=== PATIENT | male | born 1940 | race Caucasian/White ===

== ENCOUNTER 2022-07-02 17:21 | Emergency (ER) | payer MEDICARE, SELFPAY ==
[2022-07-02 17:39] VITALS: BP 146/73; PULSE 72; RESP 22; TEMP 37.2; O2SAT 95; BMI 29.6
--- NOTE | 2022-07-02 18:16 | CRLHL7_ITS ---
For Patients: As a result of the Cures Act, medical imaging exams and procedure reports are released immediately into your electronic medical record. You may view this report before your referring provider. If you have questions, please contact your health care provider. INDICATION: Shortness of breath. TECHNIQUE: Chest 2 view. COMPARISON: 01/06/2022. FINDINGS: Cardiovascular and mediastinum: Heart size and vasculature are normal in caliber and appearance. Lungs and pleural spaces: Lungs are clear. No sign of infiltrate or mass. No sign of pleural effusion. No pneumothorax. Bones and soft tissues: Thoracic spine degenerative changes. IMPRESSION: No acute cardiopulmonary abnormality. Dictated by Kristopher Sargent MD @ 07/02/2022 7:25:14 PM (Electronically Signed)
--- NOTE | 2022-07-02 18:19 | ED_ITS ---
HPI - SOB/Dyspnea General Date Seen: 07/02/22 Chief Complaint: Shortness of Breath/Dyspnea Stated Complaint: LOW OXYGEN,WHEEZING,TROUBLE BREATHING Time Seen by Provider: 07/02/22 17:34 Source: patient and family Mode of arrival: ambulatory Limitations: no limitations History of Present Illness HPI Narrative: patient is a very nice 82-year-old gentleman who presents here with shortness of breath for the last 2-3 days. He has a by significant other, he has tried nebulize treatments with DuoNeb a couple times a day. These have helped him, he has a slight cough associated with this. Fully COVID vaccinated x4. no specific purulent production of sputum, denies fever, chills, is wheezy, no leg swelling, MD elicited complaint: shortness of breath Pertinent past history: COPD Timing: constant Severity: moderate Exacerbating factors: nothing Associated symptoms: denies other symptoms Treatment prior to arrival: none Related Data Previous Rx's Medication Instructions Recorded diphenoxylate-atropine 2.5 1 tab PO TID #90 tabs 05/21/22 mg-0.025 mg tablet (Lomotil) Allergies Allergy/AdvReac Type Severity Reaction Status Date / Time No Known Allergies Allergy Unknown Verified 05/08/22 10:56 Review of Systems Status of ROS: Reports: 10 or more systems reviewed and unremarkable except as noted in History and below [facility] Medical History Chronic diarrhea History of malignant neoplasm of colon Surgical History History of appendectomy (11/28/10) History of colonoscopy History of throat surgery (11/28/10) History of total right knee replacement Family History Father Alcoholism Social History Narrative: Non-smoker . Pt's , Latisha, in summer 2017 secondary to COPD Smoking Status: Former smoker What tobacco products do you use: cigarettes Smoking quit date/years: >15 years ago Do you use any of these nicotine containing products: None Second hand tobacco smoke exposure: No How often do you have a drink containing alcohol: never How often do you have six or more drinks on one occasion: Never AUDIT-C Alcohol total score: 0 Non-prescribed substance use: denies use service: No Exam Narrative: Exam Narrative: Patient is peaking normally, problem with slurring words, oriented x3. Head eyes ears nose and throat exam show equal pupils, no scleral icterus, extraocular muscles are normal, no facial droop, speech is normal, trachea normal and midline. Thyroid normal midline palpable not enlarged. Chest shows symmetrical rise bilaterally, normal auscultation with scattered wheezes, no increased work of breathing, no overt bruising or lesions seen, no tenderness is noted on auscultation. Heart sounds normal with no S3-S4 no murmurs clicks or gallops. Abdomen shows no obvious masses or hepatosplenomegaly, no organomegaly, bowel sounds are normal in all quadrants. No tenderness is noted also in all quadrants. Upper and lower extremities show normal power, normal range of motion, pulses are normal, sensations normal, fine motor movements are normal, pelvis is stable to rocking. Cervical spine shows normal range of motion, and palpably not tender. Thoracic spine shows normal range of motion, and palpably not tender, lumbar spine shows no tenderness to palpation percussion and is otherwise normal range of motion. Skin shows no rashes, petechiae or eccymosis. Const: Vital Signs, click to edit/add: Vital Signs - 24 hr 07/02/22 17:39 Temperature 98.9 F Pulse Rate [Left P ulse Oximeter] 72 Respiratory Rate 22 Blood Pressure [Le ft Upper Arm] 146/73 H Pulse Oximetry 95 Oxygen Delivery Me thod Room Air Documenting provider has reviewed patient's vital signs: yes Common normals: no apparent distress Course Vital Signs Vital signs: Initial Vital Signs Temperature 98.9 F 07/02/22 17:39 Temperature Source Temporal Artery Scan 07/02/22 17:39 Pulse Rate 72 07/02/22 17:39 Pulse Rhythm 07/02/22 17:39 Pulse Strength 3+ Normal 07/02/22 17:39 Respiratory Rate 22 07/02/22 17:39 Blood Pressure 146/73 H 07/02/22 17:39 Blood Pressure Mean 97 07/02/22 17:39 Blood Pressure Position Sitting 07/02/22 17:39 Pulse Oximetry 95 07/02/22 17:39 Oxygen Delivery Method 07/02/22 17:39 Vital Signs Temperature 98.9 F 07/02/22 17:39 Pulse Rate 72 07/02/22 17:39 Respiratory Rate 22 07/02/22 17:39 Blood Pressure 146/73 H 07/02/22 17:39 Pulse Oximetry 95 07/02/22 17:39 Oxygen Delivery Method 07/02/22 17:39 Temperature 98.9 F 07/02/22 17:39 Pulse Rate 72 07/02/22 17:39 Respiratory Rate 22 07/02/22 17:39 Blood Pressure 146/73 H 07/02/22 17:39 Pulse Oximetry 95 07/02/22 17:39 Oxygen Delivery Method 07/02/22 17:39 MDM - SOB/Dyspnea MDM Narrative Medical decision making narrative: Life-threatening differential diagnosis includes occluded COPD exacerbation, pulmonary edema, acute coronary syndromes, pulmonary embolism, pneumonia, and pneumothorax. Other differential diagnosis considerations include asthma, bronchitis as well as other etiologies I discussed with the patient and . I feel this is an exacerbation of COPD, age adjusted D-dimer troponin normal EKG looks normal and chest x-ray shows no acute findings. We will give him a DuoNeb put him on some prednisone, and some antibiotic. Differential Diagnosis Differential diagnosis: Likely acute exacerbation of chronic obstructive airways disease, community acquired pneumonia, asthma with exacerbation and pulmonary embolism Medical Records Attestation: I reviewed the patient's medical records. Lab Data Attestation: I reviewed the patient's lab results. Labs: Lab Results 07/02/22 07/02/22 07/02/22 Range/Units 18:34 18:34 18:34 WBC 9.97 (4.50-11.00) K/uL RBC 4.69 (4.30-5.90) m/uL Hgb 13.7 (13.5-17.5) gm/dL Hct 42.2 (37.0-53.0) % MCV 90 (80-100) fL MCH 29 (26-34) pg MCHC 33 (32-36) gm/dL RDW Coeff of Angelica 13.7 (11.5-15.5) % Plt Count 326 (140-440) K/uL Neut % (Auto) 63.9 (42.0-72.0) % Lymph % (Auto) 15.6 L (20-44) % [place] % (Auto) 10.4 (0.0-11.0) % Eos % (Auto) 9.2 H (0.0-7.0) % Baso % (Auto) 0.8 (0.0-3.0) % Neut # (Auto) 6.36 (1.7-7.0) K/uL Lymph # (Auto) 1.60 (0.90-2.90) K/uL [place] # (Auto) 1.00 H (0.00-0.90) K/UL Eos # (Auto) 0.90 H (0.00-0.50) K/uL Baso # (Auto) 0.08 (0.00-0.30) K/uL Abs Immat Gran (auto) 0.01 (0.00-0.30) K/uL INR 0.93 (0.91-1.10) APTT 33 (23-33) Seconds D-Dimer Quant (PE/DVT) 0.58 H (0.00-0.50) ug/ml Sodium 138 (135-149) mmol/L Potassium 4.5 (3.6-5.1) mmol/L Chloride 105 (96-114) mmol/L Carbon Dioxide 25 (20-32) mmol/L BUN 21 (7-30) mg/dL Creatinine 1.3 (0.5-1.5) mg/dL Estimated Creat Clear 43.12 Estimated GFR 55 ml/min Glucose 103 (60-115) mg/dL Calcium 9.3 (8.4-10.6) mg/dL NT-Pro-B Natriuret Pep 61 (0-450) PG/mL SARS-CoV-2 (PCR) (Negative) Influenza Type A (PCR) (Negative) Influenza Type B (PCR) (Negative) RSV (PCR) (Negative) POC Troponin I (0.01-0.04) ng/ml 07/02/22 07/02/22 Range/Units 18:34 18:34 WBC (4.50-11.00) K/uL RBC (4.30-5.90) m/uL Hgb (13.5-17.5) gm/dL Hct (37.0-53.0) % MCV (80-100) fL MCH (26-34) pg MCHC (32-36) gm/dL RDW Coeff of Angelica (11.5-15.5) % Plt Count (140-440) K/uL Neut % (Auto) (42.0-72.0) % Lymph % (Auto) (20-44) % [place] % (Auto) (0.0-11.0) % Eos % (Auto) (0.0-7.0) % Baso % (Auto) (0.0-3.0) % Neut # (Auto) (1.7-7.0) K/uL Lymph # (Auto) (0.90-2.90) K/uL [place] # (Auto) (0.00-0.90) K/UL Eos # (Auto) (0.00-0.50) K/uL Baso # (Auto) (0.00-0.30) K/uL Abs Immat Gran (auto) (0.00-0.30) K/uL INR (0.91-1.10) APTT (23-33) Seconds D-Dimer Quant (PE/DVT) (0.00-0.50) ug/ml Sodium (135-149) mmol/L Potassium (3.6-5.1) mmol/L Chloride (96-114) mmol/L Carbon Dioxide (20-32) mmol/L BUN (7-30) mg/dL Creatinine (0.5-1.5) mg/dL Estimated Creat Clear Estimated GFR ml/min Glucose (60-115) mg/dL Calcium (8.4-10.6) mg/dL NT-Pro-B Natriuret Pep (0-450) PG/mL SARS-CoV-2 (PCR) Negative SARS-CoV-2 (Negative) Influenza Type A (PCR) Negative PCR FLU A (Negative) Influenza Type B (PCR) Negative PCR FLU B (Negative) RSV (PCR) Negative PCR RSV (Negative) POC Troponin I 0.00 L (0.01-0.04) ng/ml ECG Data Attestation: I personally reviewed and interpreted this ECG as follows: ECG interpretation date: 07/02/22 Prior ECG tracings: available for review Interpretation: EKG shows normal sinus rhythm normal EKG with no acute changes. Discharge Plan Discharge Clinical Impression: Acute exacerbation of chronic obstructive pulmonary disease Patient Disposition: Home w/ Parent or Adult Condition: Stable Instructions: COPD (Chronic Obstructive Pulmonary Disease) (ED) Additional Instructions: Home, rest, prednisone along with Zithromax, follow-up with primary care in 5-7 days, return if worsening shortness of breath, Prescriptions: No Action diphenoxylate-atropine [Lomotil] 2.5-0.025 mg tablet 1 tab PO TID Qty: 90 2RF Follow Up/Referrals: Saulo Melendez MD [Primary Care Provider] - Stand Alone Forms: [employer] Info Instructions
[2022-07-02 18:40] LABS: Basophils Absolute Auto 0.08 K/uL (0.00-0.30); Basophils Percent Auto 0.8 % (0.0-3.0); Eosinophils Percent Auto 9.2 % (0.0-7.0); Hematocrit 42.2 % (37.0-53.0); Hemoglobin* 13.7 gm/dL (13.5-17.5); Immature Granulocytes Abs Auto 0.01 K/uL (0.00-0.30); Lymphocytes Percent Auto 15.6 % (20-44); Mean Corpuscular HGB Conc 33 gm/dL (32-36); Mean Corpuscular Hemoglobin 29 pg (26-34); Mean Corpuscular Volume 90 fL (80-100); Monocytes Percent Auto 10.4 % (0.0-11.0); Neutrophils Absolute Auto 6.36 K/uL (1.7-7.0); Neutrophils Percent Auto 63.9 % (42.0-72.0); Platelet Count* 326 K/uL (140-440); RDW Coefficient of Variation % 13.7 % (11.5-15.5); Red Blood Count 4.69 m/uL (4.30-5.90); White Blood Count* 9.97 K/uL (4.50-11.00)
[2022-07-02 18:43] LABS: Slide Review Reflex No
[2022-07-02 18:49] LABS: Chloride* 105 mmol/L (96-114)
[2022-07-02 18:50] LABS: Potassium* 4.5 mmol/L (3.6-5.1); Sodium* 138 mmol/L (135-149)
[2022-07-02 18:52] LABS: Creatinine* 1.3 mg/dL (0.5-1.5); Est. Creatinine Clearance* 43.12; Estimated Glomerular Filt Rate 55 ml/min; INR 0.93 (0.91-1.10); Prothrombin Time 12.9 Seconds
[2022-07-02 18:53] LABS: Blood Urea Nitrogen* 21 mg/dL (7-30); Calcium* 9.3 mg/dL (8.4-10.6); Carbon Dioxide* 25 mmol/L (20-32); Glucose* 103 mg/dL (60-115); Partial Thromboplastin Time* 33 Seconds (23-33)
[2022-07-02 18:55] LABS: D Dimer Quantitative* 0.58 ug/ml (0.00-0.50)
[2022-07-02 19:02] LABS: NT Pro B Type NatriureticPept* 61 PG/mL (0-450)
[2022-07-02 19:18] LABS: PCR FLU A Negative PCR FLU A (Negative); PCR FLU B Negative PCR FLU B (Negative); PCR RSV Negative PCR RSV (Negative)
[2022-07-02 19:25] LABS: SARS PCR* Negative SARS-CoV-2 (Negative)
[2022-07-02] MEDS: IPRAT-ALBUT 0.5-2.5 MG/3 ML NEB 1 NEB IH (20:17)
== END 2022-07-02 21:17 | disposition home or self-care (01) ==
PROVIDERS: Emergency Provider Family Medicine; PCP Family Medicine
DX: J44.1 Chronic obstructive pulmonary disease with (acute) exacerbation (principal)
CPT/HCPCS: 36415; 71046; 80048; 83880; 84484; 85025; 85379; 85610; 85730; 87502; 87634; 87635; 93005; 94640; 99284; 99285

== ENCOUNTER 2023-03-09 08:03 | Emergency (ER) | payer MEDICARE, SELFPAY ==
[2023-03-09 08:16] VITALS: BP 155/79; PULSE 93; RESP 22; TEMP 36.6; O2SAT 95; BMI 30.5
--- NOTE | 2023-03-09 08:49 | ED_ITS ---
HPI - General Adult General Date Seen: 03/09/23 Chief complaint: Cough Stated complaint: trouble breathing Time Seen by Provider: 03/09/23 08:33 Source: patient Mode of arrival: ambulatory Limitations: no limitations History of Present Illness HPI narrative: Patient is an 83-year-old male who presents for evaluation of sore throat. He says he has had this for about a week and a half. He attributes this to going in and out of air conditioning from the heat in [place]. They were just there and return last night. He has not had really much of a cough, has not had a fever. He does have a little bit of junk in the back of his throat which he sometimes coughs up. A little bit of congestion as well. Symptoms have been persistent and not getting any better and he says are driving him crazy. He does not note shortness of breath. He is able to swallow okay. Vaccinated for COVID. Quit smoking 50 years ago. Does not chew tobacco. Related Data Home Medications Medication Instructions Recorded Confirmed aspirin 81 mg tablet,delayed 81 mg PO QDAY 07/04/22 07/04/22 release azithromycin 250 mg tablet 250 mg PO .ud 07/04/22 07/04/22 ipratropium 0.5 mg-albuterol 3 mg 3 ml inhalation Q4H PRN 07/04/22 07/04/22 (2.5 mg base)/3 mL nebulization soln multivitamin (Daily Multi-Vitamin 1 tab PO QAM 07/04/22 07/04/22 tablet) prednisone 20 mg tablet 20 mg PO .ud 07/04/22 07/04/22 simvastatin 40 mg tablet 40 mg PO QDAY 07/04/22 07/04/22 Previous Rx's Medication Instructions Recorded diphenoxylate-atropine 2.5 1 tab PO TID #270 tabs 07/04/22 mg-0.025 mg tablet (Lomotil) fluticasone 250 mcg-salmeterol 50 1 inh inhalation BID #180 ea 07/04/22 mcg/dose blistr powdr for inhalation (Advair Diskus) metoprolol succinate 100 mg 100 mg PO QDAY #90 tabs 07/04/22 tablet,extended release 24 hr nebulizers #1 ea 07/05/22 amlodipine 5 mg tablet 5 mg PO QDAY #90 tabs 07/07/22 tamsulosin 0.4 mg capsule 0.4 mg PO QDAY #90 caps 07/07/22 Allergies Allergy/AdvReac Type Severity Reaction Status Date / Time No Known Allergies Allergy Unknown Verified 07/04/22 12:09 Review of Systems Status of ROS: Reports: 10 or more systems reviewed and unremarkable except as noted in History and below [facility] Medical History Adrenal nodule ?E27.8 - Other specified disorders of adrenal gland (ICD-10) Cholelithiasis ?K80.20 - Calculus of gallbladder without cholecystitis without obstruction (ICD-10) Chronic diarrhea ?K52.9 - Noninfective gastroenteritis and colitis, unspecified (ICD-10) COPD (chronic obstructive pulmonary disease) ?J44.9 - Chronic obstructive pulmonary disease, unspecified (ICD-10) Coronary artery disease ?I25.10 - Atherosclerotic heart disease of [place] coronary artery without angina pectoris (ICD-10) Hyperlipidemia (11/28/10) ?E78.5 - Hyperlipidemia, unspecified (ICD-10) Hypertension (11/28/10) ?I10 - Essential (primary) hypertension (ICD-10) Malignant neoplasm of colon (11/28/10) ?C18.9 - Malignant neoplasm of colon, unspecified (ICD-10) Mediastinal lymphadenopathy ?R59.0 - Localized enlarged lymph nodes (ICD-10) Nodule of upper lobe of right lung ?R91.1 - Solitary pulmonary nodule (ICD-10) Obstructive sleep apnea treated with continuous positive airway pressure (CPAP) ?G47.33 - Obstructive sleep apnea (adult) (pediatric) (ICD-10) ?Z99.89 - Dependence on other enabling machines and devices (ICD-10) Recurrent epistaxis ?R04.0 - Epistaxis (ICD-10) Respiratory syncytial virus bronchitis ?J20.5 - Acute bronchitis due to respiratory syncytial virus (ICD-10) Small bowel obstruction ?K56.609 - Unspecified intestinal obstruction, unspecified as to partial versus complete obstruction (ICD-10) Type 2 diabetes mellitus ?E11.9 - Type 2 diabetes mellitus without complications (ICD-10) Surgical History History of appendectomy (11/28/10) ?Z90.49 - Acquired absence of other specified parts of digestive tract (ICD- 10) History of colonoscopy ?Z98.890 - Other specified postprocedural states (ICD-10) History of throat surgery (11/28/10) ?Z98.890 - Other specified postprocedural states (ICD-10) History of total right knee replacement ?Z96.651 - Presence of right artificial knee joint (ICD-10) Family History Father Alcoholism Social History Narrative: Non-smoker . Pt's , Latisha, in summer 2017 secondary to COPD Smoking Status: Former smoker What tobacco products do you use: cigarettes Smoking quit date/years: >15 years ago Do you use any of these nicotine containing products: None Second hand tobacco smoke exposure: No How often do you have a drink containing alcohol: never How often do you have six or more drinks on one occasion: Never AUDIT-C Alcohol total score: 0 Non-prescribed substance use: denies use service: No Exam Narrative: Exam Narrative: Vital signs as noted above. In general, an alert, nontoxic elderly male. Breathing easily. Head: Normocephalic, atraumatic. Eyes: Pupils are equal reactive. Extraocular movements are full. Conjunctivae are normal. ENT: Mucous membranes are moist. Difficult to see the back of his throat secondary to a vigorous gag reflex. Neck: Supple without lymphadenopathy. No masses, no stridor. Heart: Regular rate and rhythm. No murmur or rub. Lungs: Scattered rhonchi, no wheezes, no increased work of breathing. Abdomen: Soft and nontender. No organomegaly. Extremities: Well perfused. No edema. No calf tenderness. Pulses intact. Neurologic: Patient is alert and oriented to person and place. Speech is fluent. Face is symmetric. Moves all extremities equally. Affect: Normal. Skin: Warm and dry. Well perfused. Const: Vital Signs, click to edit/add: Vital Signs - 24 hr 03/09/23 08:16 03/09/23 09:00 Temperature 97.8 F Pulse Rate [Pulse Oximeter] 93 96 Respiratory Rate 22 20 Blood Pressure [Le ft Upper Arm] 155/79 H 141/71 H Pulse Oximetry 95 Oxygen Delivery Me thod Room Air Documenting provider has reviewed patient's vital signs: yes Course Course Hospital Course: I checked a COVID and a strep both of which are negative. He has all of this mucoid discharge in the back of his throat, some nasal congestion, symptoms have been present for 10 days. With his age and underlying health history am going to try treating him for sinusitis and see if he improves. If not, follow up with primary care in the next week or so. Return for worsening. Vital Signs Vital signs: Initial Vital Signs Temperature 97.8 F 03/09/23 08:16 Temperature Source Temporal Artery Scan 03/09/23 08:16 Pulse Rate 93 03/09/23 08:16 Pulse Rhythm Regular 03/09/23 08:16 Respiratory Rate 22 03/09/23 08:16 Blood Pressure 155/79 H 03/09/23 08:16 Blood Pressure Mean 104 03/09/23 08:16 Blood Pressure Position Supine 03/09/23 08:16 Pulse Oximetry 95 03/09/23 08:16 Oxygen Delivery Method Room Air 03/09/23 08:16 Vital Signs Temperature 97.8 F 03/09/23 08:16 Pulse Rate 93 03/09/23 08:16 Respiratory Rate 22 03/09/23 08:16 Blood Pressure 155/79 H 03/09/23 08:16 Pulse Oximetry 95 03/09/23 08:16 Oxygen Delivery Method Room Air 03/09/23 08:16 Temperature 97.8 F 03/09/23 08:16 Pulse Rate 96 03/09/23 09:00 Respiratory Rate 20 03/09/23 09:00 Blood Pressure 141/71 H 03/09/23 09:00 Pulse Oximetry 95 03/09/23 08:16 Oxygen Delivery Method Room Air 03/09/23 08:16 Medical Decision Making Lab Data Labs: Lab Results 03/09/23 Range/Units 08:38 SARS-CoV-2 (PCR) Negative SARS-CoV-2 (Negative) Group A Strep DNA NOT DETECTED (Not Detectd) Discharge Plan Discharge Clinical Impression: Sinusitis, Acute sore throat Patient Disposition: Home, Self-Care Condition: Stable Instructions: Sinusitis (ED) Additional Instructions: Antibiotic as prescribed. If you do not feel better over the next week or so, follow up with your primary doctor. Return for worsening Prescriptions: No Action simvastatin 40 mg tablet 40 mg PO QDAY prednisone 20 mg tablet 20 mg PO .ud Patient Comments: TAKE 3 TABS DAILY FOR 3 DAYS, 2 TABS DAILY FOR 3 DAYS, THEN 1 TAB DAILY FOR 3 DAYS azithromycin 250 mg tablet 250 mg PO .ud Patient Comments: TAKE 2 TABLETS BY MOUTH TODAY, THEN TAKE 1 TABLET DAILY FOR 4 DAYS ipratropium-albuterol 0.5 mg-3 mg(2.5 mg base)/3 mL solution for nebulization 3 ml inhalation Q4H PRN aspirin 81 mg tablet,delayed release (DR/EC) 81 mg PO QDAY multivitamin [Daily Multi-Vitamin] Tablet 1 tab PO QAM fluticasone propion-salmeterol [Advair Diskus] 250-50 mcg/dose blister with device 1 inh inhalation BID Qty: 180 3RF diphenoxylate-atropine [Lomotil] 2.5-0.025 mg tablet 1 tab PO TID Qty: 270 3RF metoprolol succinate 100 mg tablet extended release 24 hr 100 mg PO QDAY Qty: 90 3RF (DME) nebulizers Misc See Rx Instructions .Route Qty: 1 2RF Rx Instructions: As directed amlodipine 5 mg tablet 5 mg PO QDAY Qty: 90 3RF tamsulosin 0.4 mg capsule 0.4 mg PO QDAY Qty: 90 3RF Follow Up/Referrals: Saulo Melendez MD [Primary Care Provider] - Stand Alone Forms: [employer] Info Instructions
[2023-03-09 09:00] VITALS: BP 141/71; PULSE 96; RESP 20
[2023-03-09 09:36] LABS: SARS PCR* Negative SARS-CoV-2 (Negative); Strep A DNA Probe* NOT DETECTED (Not Detectd)
== END 2023-03-09 10:10 | disposition home or self-care (01) ==
PROVIDERS: Emergency Provider Emergency Medicine; PCP Family Medicine
DX: J02.9 Acute pharyngitis, unspecified (principal); J32.9 Chronic sinusitis, unspecified
CPT/HCPCS: 87635; 87651; 99283

== ENCOUNTER 2023-06-26 08:49 | Outpatient (CLI) | payer MEDICARE, SELFPAY | END 2023-06-26 08:50 | disposition home or self-care (01) | LOC: NFLDREF 08:50 | PROVIDERS: PCP Family Medicine; Visit Provider Family Medicine | DX: E78.5 Hyperlipidemia, unspecified (principal); G47.33 Obstructive sleep apnea (adult) (pediatric); I10 Essential (primary) hypertension; Z99.89 Dependence on other enabling machines and devices | CPT/HCPCS: 80048; 80061; 84460 ==

== ENCOUNTER 2024-09-02 10:22 | Outpatient (CLI) | payer MEDICARE, OTHER, SELFPAY | END 2024-09-02 10:23 | disposition home or self-care (01) | PROVIDERS: PCP Family Medicine; Visit Provider Family Medicine | DX: E78.2 Mixed hyperlipidemia (principal); I10 Essential (primary) hypertension; E11.9 Type 2 diabetes mellitus without complications; F32.9 Major depressive disorder, single episode, unspecified; K52.9 Noninfective gastroenteritis and colitis, unspecified | CPT/HCPCS: 80048; 80061; 84460; 85025 ==

== ENCOUNTER 2025-02-14 06:22 | Outpatient (CLI) | payer MEDICARE, OTHER, SELFPAY | END 2025-02-14 06:23 | disposition home or self-care (01) | LOC: AMB 02-15 08:56 | PROVIDERS: PCP Family Medicine; Visit Provider Family Medicine | DX: S79.911A Unspecified injury of right hip, initial encounter (principal); W10.8XXA Fall (on) (from) other stairs and steps, initial encounter; Y92.007 Garden or yard of unspecified non-institutional (private) residence as the place of occurrence of the external cause | CPT/HCPCS: A0425; A0427 ==

== ENCOUNTER 2025-02-14 06:59 | Inpatient (IN) | payer MEDICARE, OTHER, SELFPAY ==
[2025-02-14] VITALS (24 sets, daily range): BP systolic 90–140; BP diastolic 58–94; PULSE 58–84; RESP 16–20; TEMP 36.3–37.3; O2SAT 87–93; BMI 27.4; BMI 30.1
--- NOTE | 2025-02-14 | CRLHL7_ITS ---
For Patients: As a result of the Cures Act, medical imaging exams and procedure reports are released immediately into your electronic medical record. You may view this report before your referring provider. If you have questions, please contact your health care provider. INDICATION: Fall. TECHNIQUE: Chest 1 views. COMPARISON: X-ray chest June 2022. FINDINGS/IMPRESSION: Patient is rotated to the right. No focal pulmonary infiltrate, significant effusion or pneumothorax. Redemonstration of left basilar atelectasis. Cardiac size is within normal limit without pulmonary edema. Dictated by Mabel Orourke MD @ 02/14/2025 8:02:49 AM (Electronically Signed)
--- OUTSIDE RECORDS SUMMARY | 2025-02-14 07:01 | XMS_ITS | Clinical Summary ---
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 For routine questions regarding patient records, call [phone] during business hours, M-F 8:00 AM - 5:00 PM Central Time. Record requests for emergency care only can be directed to [phone] at any time.[facility] Allergies No known active allergies Medications * This document contains information received from the source organization and may not represent a complete record from that organization. simvastatin (ZOCOR) 40 mg tablet Take 40 mg by mouth daily. 1 Active lisinopriL (PRINIVIL,ZESTR IL) 10 mg tablet daily. 0 Active amLODIPine (NORVASC) 5 mg tablet Take 5 mg by mouth daily. 0 Active metoprolol succinate (TOPROL-XL) 50 mg 24 hr tablet Take 50 mg by mouth daily. 0 Active tamsulosin (FLOMAX) 0.4 mg 24 hr capsule Take 0.4 mg by mouth daily. 1 Active cetirizine (ZyrTEC) 10 mg tablet daily. Active jjoibkcu-ioj-SU -lycopen-lutein (Centrum Silver Men) 300-600-300 mcg tablet daily. Active acetaminophen (TYLENOL) 500 mg capsule Take 2 capsules (1,000 mg total) by mouth every 6 (six) hours as needed for pain. 100 capsule Active Additional Information Patient taking differently:1,000 mg oralDaily, Reported on 04/24/[address] tablet Take 81 mg by mouth daily. Active albuterol 2.5 mg /3 mL nebulizer solution Inhale 3 mL (2.5 mg total) by nebulization every 6 (six) hours as needed for wheezing for up to 10 days. 75 mL 3 Active Active Problems Problem Noted Date Diagnosed Date Sinusitis 03/09/2023 03/09/2023 Presence Of Right Artificial Knee Joint 03/09/20 23 03/09/2023 Noninfective Gastroenteritis And Colitis Unspeci fied 03/09/2023 03/09/2023 Obstruction Intestinal 03/09/2023 Other Specified Disorders Of Adrenal Gland 03/0903/09/2023 Nodule Pulmonary Solitary 03/09/20232022 Nodule Prostate 03/09/2023 03/09/2023 Localized Enlarged Lymph Nodes 03/09/2023 0 03/09/2023 Gallstone Without Obstruction 03/09/2023 Epistaxis 03/09/2023 03/09/2023 Diabetes Mellitus Type 2 03/09/2023 023 Chronic Obstructive Pulmonary Disease 03/09/2023 03/09/2023 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 03/09/2023 03/09/2023 Acute Bronchitis Due To Respiratory Syncytial Vi rojelio 03/09/2023 03/09/2023 Aftercare Total Knee Arthroplasty 02/14/2021 Obesity Body Mass Index 30-39.9 Adult 02/12/2021 Dyspnea On Exertion 02/12/2021 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 Overview (02/12/2021): Stable Elevated Creatinine 02/12/2021 Apnea Sleep Obstructive 01/07/2021 Overview (03/09/2023): wears CPAP nightly Nicotine Dependence Cigarettes In Remission 03/0 11/2020 Primary Osteoarthritis Knee Right 07/31/2020 Overview (07/31/2020): Added automatically from request for surgery [id number] Hyperlipidemia 11/28/2010 Overview (03/09/2023): Takes simvastatin Hypertension 11/28/2010 Overview (03/09/2023): Takes lisinopril, amlodipine, metoprolol Malignant Neoplasm Of Colon 11/28/2010 05/0 11/2022 Immunizations Immunization Administration Dates Next Due HZV (ZOSTAVAX) 05/16/2009 Influenza high dose QV(65 ye ars or older) (PF) 09/11/2022,08/29/2021,08/31/2020 Influenza, Injectable, Quadrivalent 09/09,08/11/2017,12/10/2016,2014,11/17/2013,08/12/2012,08/12/2010,0 07/04/2009,09/07/2006,11/13/2005 Influenza, Seasonal, Injectable 07/04/2009,09/07,11/13/2005 PCV13 05/10/2015 PPSV23 09/27/2018,10/20/2006 Td (Adult), adsorbed 11/07/1995 Td Preservative Free (TENIVA C, DECAVAC) 10/20/2006 Td, (Adult) Unspecified 10/20/2006 Tdap 12/15/2011 influenza trivalent high dos e (HD)(PF) 09/27/2018,08/11/2017,12/10/2016,2014,08/12/2010 influenza trivalent vaccine (6 months and older)(PF) 11/17/2013,08/12/2012 influenza vaccine quad (FLUZONE/FLUARIX) (6 months and older)(PF) 08/24/2019 Social History Tobacco Use Types Packs/Day Years Used Date Smoking Tobacco: Former Cigarettes 2 27 1 958 - 1985 Smokeless Tobacco: Never Alcohol Use Standard Drinks/Week Comments Yes 6 (1 standard drink = 0.6 oz pur e alcohol) AUDIT-C Answer Date Recorded Q1: How often do you have a drink containing alcohol? 4 or more times a week 02/12/2021 Q2: How many drinks containi ng alcohol do you have on a typical day when you are drinking? 1 or 2 Frequency of Binge Drinking Not on file 04/2021 Nutrition Answer Date Recorded Nutrition: EVOO Fat Source Unknown 01/01 Nutrition: Servings of Fruits/Vegetables per Day Not on file 01/01/2021 Dental Answer Date Recorded Dental: Regular Dentist Unknown 01/01/20 Sex and Gender Information Value Date Recorded Sex Assigned at Not on file Legal Sex Male 2:44 PM CDT Gender Identity Not on file Sexual Orientation Not on file Last Filed Vital Signs Vital Sign Reading Time Taken Comments Blood Pressure 120/56 03/09/2023 6:00 PM CDT Pulse 81 03/09/2023 6:30 PM CDT Temperature 36.8 C (98.2 F) 03/09/2023 5:42 PM CDT Respiratory Rate 24 03/09/2023 5:54 PM CDT Oxygen Saturation 91% 03/09/2023 6:30 PM CDT Inhaled Oxygen Concentration - - Weight 86.5 kg (190 lb 11.2 oz) 03/09/2023 5:38 PM CDT Height 166 cm (5' 5.35) 02/14/2021 9:24 AM CDT Body Mass Index 31.39 02/14/2021 9:24 AM CDT Plan of Treatment Health Maintenance Due Date Last Done Comments Diabetic Office Visit with Foot Exam 1941 Dilated Eye Exam 1941 Hemoglobin A1C 1941 Office Visit for Blood Pressure Check / Re-check 1941 Urine Albumin 1941 Zoster Vaccines (2 of 3) 07/11/2009 05/16/2009 RSV vaccine - (32-36 weeks) or 60+ years (1 - 1-dose 75+ series) 01/16/2016 Creatinine Level (Kidney Function Test) 03/09/2024 03/09/2023, 02/12/2021 Potassium Level 03/09/2024 03/09/2023, 0 07/2021, 02/12/2021 Sodium Level 03/09/2024 03/09/2023, 0 07/2021, 02/12/2021 COVID-19 Vaccine ( season) 2024 09/07/2023, 11/21/2021, 2021, Additional history exists Influenza Vaccine (#1) 2024 , 09/11/2022, 08/29/2021, Additional history exists Depression Screening (Annual PHQ-2) 11/09/2024 Fall Risk Screen (Annual) 11/09/2024 DTaP,Tdap,and Td Vaccines (3 - Td or Tdap) 06/26/2033 06/26/2023, 12/15/2011, 10/20/2006, Additional history exists Pneumococcal vaccine (50+ years) Completed 09/27/2018, 05/10/2015, 10/20/2006 IPV Vaccines Aged Out No longer eligi ble based on patient's age to complete this topic Medical Devices Implanted Type Area Kitchenhand Device Identifier Shelf Expiration Date Model / Serial / Lot Cmnt Bn Hi Visc Pmma 40 - [id number] Implanted:Qty : 1 on 02/14/2021 by Gigi Gutierrez M.D. at [facility] Bone Cement Right: Knee Kami 6191-1-001 / / Cmnt Bn Hi Visc Pmma 40 - [id number] Implanted:Qty : 1 on 02/14/2021 by Gigi Gutierrez M.D. at [facility] Bone Cement Right: Knee [place] 6191-1-001 / / Kn Fem Att Rt Cmnt Ps Sz-7 - [id number] Implanted:Qty : 1 on 02/14/2021 by Gigi Gutierrez M.D. at [facility] Knee Implant Right: Knee Depuy Synthes 12/09/2030 [id number] / / [id number] Pat Att Mdlzd 41 - [id number] Implanted:Qty : 1 on 02/14/2021 by Gigi Gutierrez M.D. at [facility] Knee Implant Right: Knee Depuy Synthes 07/09/2024 [id number] / / [id number] Bsplt Tib Att Fb Sz6 - [id number] Implanted:Qty : 1 on 02/14/2021 by Gigi Gutierrez M.D. at [facility] Knee Implant Right: Knee Depuy Synthes 10/08/2030 [id number] / / [id number] Ins Tib Att Ps 7x7 - [id number] Implanted:Qty : 1 on 02/14/2021 by Gigi Gutierrez M.D. at [facility] Knee Implant Right: Knee Depuy Synthes 03/08/2025 [id number] / / [id number] Procedures Procedure Name Priority Date/Time Associated Diagnosis Comments COMPREHENSIVE METABOLIC PANEL, S/P STAT 03/09/2023 5:58 PM CDT from Last 3 Months or Most Recently Relevant to Health Maintenance Results * (ABNORMAL) Comprehensive Metabolic Panel (03/09/2023 5:58 PM CDT) Potassium, P 4.2 3.6 - 5.2 mmol/L 03/09/2023 6:21 PM CDT CNFL Sodium, P 136 135 - 145 mmol/L 03/09/2023 6:21 PM CDT CNFL Chloride, P 102 98 - 107 mmol/L 03/09/2023 6:21 PM CDT CNFL Bicarbonate, P 24 22 - 29 mmol/L 03/09/2023 6:21 PM CDT CNFL Anion Gap, P 10 7 - 15 03/09/2023 6:21 PM CDT CNFL BUN (Blood Urea Nitrogen), P 20 8 - 24 mg/dL 03/09/2023 6:21 PM CDT CNFL Creatinine 1.24 0.74 - 1.35 mg/dL 03/09/2023 6:21 PM CDT CNFL Estimated GFR (eGFR) 58(L) >=60 mL/min/BS A 03/09/2023 6:21 PM CDT CNFL Comment: Estimated GFR calculated using the 2020 CKD_EPI creatinine equation. Calcium, Total, P 8.9 8.8 - 10.2 mg/dL 03/09/2023 6:21 PM CDT CNFL Glucose, P 153(H) 70 - 140 mg/dL 03/09/2023 6:21 PM CDT CNFL Protein, Total, P 7.7 6.3 - 7.9 g/dL 03/09/2023 6:21 PM CDT CNFL Albumin, P 3.7 3.5 - 5.0 g/dL 03/09/2023 6:21 PM CDT CNFL Aspartate Aminotransferase (AST), P 16 8 - 48 U/L 03/09/2023 6:21 PM CDT CNFL Alkaline Phosphatase, P 72 40 - 129 U/L 03/09/2023 6:21 PM CDT CNFL Alanine Aminotransferase (ALT), P 15 7 - 55 U/L 03/09/2023 6:21 PM CDT CNFL Bilirubin, Total, P 0.3 <=1.2 mg/dL 03/09/2023 6:21 PM CDT CNFL Blood (Blood, Venous) 03/09/2023 5:58 PM CDT 03/09/2023 6:00 PM CDT us Janette Leal D.O. 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
--- NOTE | 2025-02-14 07:20 | CRLHL7_ITS ---
For Patients: As a result of the Century Cures Act, medical imaging exams and procedure reports are released immediately into your electronic medical record. You may view this report before your referring provider. If you have questions, please contact your health care provider. INDICATION: Fall, right hip pain COMPARISON: None. TECHNIQUE: AP pelvis, AP right hip, cross-table lateral right hip. FINDINGS: There is an acute fracture across the base of the right femoral neck. The fracture is mildly impacted and there is almost 90 degrees of angulation at the femoral neck shaft angle. Normal hip joint alignment. Joint spaces are normal. No subchondral remodeling at the hip joint. No destructive focal bone lesions. Atherosclerotic vascular calcifications. IMPRESSION: Angulated mildly impacted right femoral neck fracture. Dictated by Jessica Smith MD @ 02/14/2025 7:53:45 AM (Electronically Signed)
--- NOTE | 2025-02-14 07:22 | ED_ITS ---
HPI - General Adult General Chief complaint: Fall/Minor Trauma <Lizeth Lane MD - Last Filed: 02/14/25 23:56> Stated complaint: Fall--hip injury <Lizeth Lane MD - Last Filed: 02/14/25 23:56> Time Seen by Provider: 02/14/25 07:13 <Lizeth Lane MD - Last Filed: 02/14/25 23:56> Source: patient and EMS <Lizeth Lane MD - Last Filed: 02/14/25 23:56> Mode of arrival: EMS <Lizeth Lane MD - Last Filed: 02/14/25 23:56> Limitations: no limitations <Lizeth Lane MD - Last Filed: 02/14/25 23:56> History of Present Illness HPI narrative: 85-year-old male presents to the ED by EMS. Approximately 1 hour prior to arrival, he was out on his morning routine and went outside to feed the outdoor animals. He had turned off the outside light and was walking in and missed the last step in the dark, causing him to fall onto the concrete, landing on his right side. He did not lose consciousness. He actually had his phone in his pocket which is a rarity and was able to call his family for help. Denies headache, chest pain, abdominal pain or pain in other areas besides the right hip. No difficulties in the right knee or foot. No prior history of surgery in this area. No fever or recent illness. There was no dizziness or preceding symptoms. Fall was purely mechanical. EMS assessed and brings him to the ED, did not administer any medication prior to arrival. Patient does not have pain unless he tries to move the hip and has it flexed in an awkward position. Last meal 3:00 p.m. yesterday afternoon, not anticoagulated besides low-dose daily aspirin. No prior history of anesthesia complications per patient. Past medical history is notable for type 2 diabetes. Treated with metformin only. He has history of colon cancer and therefore chronic diarrhea, coronary artery disease BPH and hypertension. He reports that his home meds are listed is accurate and notable for amlodipine, aspirin, Lomotil, Lexapro inhalers for COPD, metformin metoprolol and Flomax. No known drug allergies. ROS is notable for the right hip pain today only, otherwise denies times 12 systems. <Lizeth Lane MD - Last Filed: 02/14/25 23:56> Related Data Home medications: Home Medications ?Medication ?Instructions ?Recorded ?Confirmed aspirin 81 mg tablet,delayed 81 mg PO DAILY 07/04/22 02/14/25 release multivitamin (Daily Multi-Vitamin 1 tab PO QAM 07/04/22 02/14/25 tablet) ipratropium 0.5 mg-albuterol 3 mg 3 ml inhalation Q4H PRN wheezing 02/05/24 02/14/25 (2.5 mg base)/3 mL nebulization soln diphenhydramine HCl 25 mg capsule 25 mg PO QHS 02/14/25 02/14/25 (Aler-Cap) diphenoxylate-atropine 2.5 1 - 2 tab PO BID 02/14/25 02/14/25 mg-0.025 mg tablet (Lomotil) escitalopram oxalate 20 mg tablet 20 mg PO DAILY 02/14/25 02/14/25 guar gum (Nutrisource Fiber packet) 1 tbsp PO DAILY PRN 02/14/25 02/14/25 metformin 500 mg tablet,extended 500 mg PO DAILY 02/14/25 02/14/25 release 24 hr metoprolol succinate 100 mg 100 mg PO DAILY 02/14/25 02/14/25 tablet,extended release 24 hr tamsulosin 0.4 mg capsule 0.4 mg PO DAILY 02/14/25 02/14/25 Previous Rx's ?Medication ?Instructions ?Recorded fluticasone 250 mcg-salmeterol 50 1 inh inhalation BID #180 ea 01/05/24 mcg/dose blistr powdr for inhalation (Advair Diskus) amlodipine 5 mg tablet 5 mg PO DAILY #90 tabs 12/12/24 <Lizeth Lane MD - Last Filed: 02/14/25 23:56> Allergies/adverse reactions: Allergies Allergy/AdvReac Type Severity Reaction Status Date / Time No Known Drug Allergies Allergy Verified 09/02/24 09:28 <Lizeth Lane MD - Last Filed: 02/14/25 23:56> [facility] Medical History: Medical History (Updated 02/14/25 @ 12:27 by Olman Martinez MD) Sinusitis (03/09/23) ?J32.9 - Chronic sinusitis, unspecified (ICD-10) Malignant neoplasm of colon (11/28/10) ?C18.9 - Malignant neoplasm of colon, unspecified (ICD-10) Hypertension (11/28/10) ?I10 - Essential (primary) hypertension (ICD-10) Hyperlipidemia (11/28/10) ?E78.5 - Hyperlipidemia, unspecified (ICD-10) Stage 3b chronic kidney disease ?N18.32 - Chronic kidney disease, stage 3b (ICD-10) Hallucinations ?R44.3 - Hallucinations, unspecified (ICD-10) Imbalance ?R26.89 - Other abnormalities of gait and mobility (ICD-10) Patient has active power of assistant district attorney for property Mixed hyperlipidemia ?E78.2 - Mixed hyperlipidemia (ICD-10) Primary hypertension ?I10 - Essential (primary) hypertension (ICD-10) Type 2 diabetes mellitus, without long-term current use of insulin ?E11.9 - Type 2 diabetes mellitus without complications (ICD-10) COPD (chronic obstructive pulmonary disease) ?J44.9 - Chronic obstructive pulmonary disease, unspecified (ICD-10) Obstructive sleep apnea treated with continuous positive airway pressure (CPAP) ?G47.33 - Obstructive sleep apnea (adult) (pediatric) (ICD-10) ?Z99.89 - Dependence on other enabling machines and devices (ICD-10) Chronic diarrhea ?K52.9 - Noninfective gastroenteritis and colitis, unspecified (ICD-10) Small bowel obstruction ?K56.609 - Unspecified intestinal obstruction, unspecified as to partial versus complete obstruction (ICD-10) Respiratory syncytial virus bronchitis ?J20.5 - Acute bronchitis due to respiratory syncytial virus (ICD-10) Recurrent epistaxis ?R04.0 - Epistaxis (ICD-10) Nodule of upper lobe of right lung ?R91.1 - Solitary pulmonary nodule (ICD-10) Mediastinal lymphadenopathy ?R59.0 - Localized enlarged lymph nodes (ICD-10) Malignant neoplasm of colon (11/28/10) ?C18.9 - Malignant neoplasm of colon, unspecified (ICD-10) Coronary artery disease ?I25.10 - Atherosclerotic heart disease of [place] coronary artery without angina pectoris (ICD-10) Cholelithiasis ?K80.20 - Calculus of gallbladder without cholecystitis without obstruction (ICD-10) Adrenal nodule ?E27.8 - Other specified disorders of adrenal gland (ICD-10) <Lizeth Lane MD - Last Filed: 02/14/25 23:56> Surgical History: Surgical History (Updated 02/14/25 @ 16:14 by Miranda Simon ~ MARKET SUPERINTENDENT, MARKET SUPERINTENDENT) History of open reduction and internal fixation (ORIF) procedure (02/14/25) ?Z98.890 - Other specified postprocedural states (ICD-10) Presence of right artificial knee joint (03/09/23) ?Z96.651 - Presence of right artificial knee joint (ICD-10) History of total right knee replacement ?Z96.651 - Presence of right artificial knee joint (ICD-10) History of throat surgery (11/28/10) ?Z98.890 - Other specified postprocedural states (ICD-10) History of colonoscopy ?Z98.890 - Other specified postprocedural states (ICD-10) History of appendectomy (11/28/10) ?Z90.49 - Acquired absence of other specified parts of digestive tract (ICD- 10) <Lizeth Lane MD - Last Filed: 02/14/25 23:56> Family History: Family History Father Alcoholism <Lizeth Lane MD - Last Filed: 02/14/25 23:56> Social History: Social History (Updated 02/14/25 @ 12:19 by Olman Martinez MD) Narrative: Former smoker. Drinks alcohol, approximately 2 drinks every other day. . Pt's , Latisha, in summer 2017 secondary to COPD. Lives with his daughter Carleen. She is healthcare power of assistant district attorney. Code status is DNR What is your current living situation?: I presently have a place to live Problems where you live: no known problems Problems where you live details: none In the past 12 months, utilities in danger of being shut off: no In past 12 months, lack of transportation kept you from medical appts, meetings, work, or getting things needed for daily living: no In the past 12 mos, have been you worried that your food would run out before you had money to buy more?: never true In the past 12 mos, the food you bought just didn't last and you didn't have money to buy more?: never true Highest level of school completed/degree received: high school graduate Smoking Status: Former smoker What tobacco products do you use: cigarettes Smoking quit date/years: >15 years ago Do you use any of these nicotine containing products: None Second hand tobacco smoke exposure: No How often do you have a drink containing alcohol: monthly or less Alcohol type: beer How many standard drinks containing alcohol do you have on a typical day: 1 or 2 How often do you have six or more drinks on one occasion: Never AUDIT-C Alcohol total score: 1 Non-prescribed substance use: denies use Caffeine: Yes How often does anyone, including family, friends and others, physically hurt you : never How often does anyone, including family, friends and others, insult or talk down to you: never How often does anyone, including family, friends and others, threaten you with harm: never How often does anyone, including family, friends and others, scream or curse at you: never service: No <Lizeth Lane MD - Last Filed: 02/14/25 23:56> Exam Const: Vital Signs, click to edit/add: Vital Signs - 24 hr 02/14/25 07:11 02/14/25 09:18 02/14/25 10:00 Temperature 98.2 F 97.8 F Pulse Rate [Pulse Oximeter] 59 L 58 L Respiratory Rate 18 18 16 Blood Pressure [Le ft Arm] Blood Pressure [Ri ght Upper Arm] 121/71 137/72 Pulse Oximetry 91 89 88 Oxygen Delivery Me thod Room Air Room Air Room Air 02/14/25 10:03 02/14/25 12:12 Temperature 98.9 F 99.2 F Pulse Rate [Pulse Oximeter] 58 L 66 Respiratory Rate 16 16 Blood Pressure [Le ft Arm] 123/75 135/94 H Blood Pressure [Ri ght Upper Arm] Pulse Oximetry 88 88 Oxygen Delivery Me thod Room Air Room Air <Lizeth Lane MD - Last Filed: 02/14/25 23:56> Vital Signs, click to edit/add: Vital Signs - 24 hr 02/14/25 07:11 02/14/25 09:18 02/14/25 10:00 Temperature 98.2 F 97.8 F Pulse Rate [Pulse Oximeter] 59 L 58 L Respiratory Rate 18 18 16 Blood Pressure [Le ft Arm] Blood Pressure [Ri ght Upper Arm] 121/71 137/72 Pulse Oximetry 91 89 88 Oxygen Delivery Me thod Room Air Room Air Room Air 02/14/25 10:03 02/14/25 12:12 Temperature 98.9 F 99.2 F Pulse Rate [Pulse Oximeter] 58 L 66 Respiratory Rate 16 16 Blood Pressure [Le ft Arm] 123/75 135/94 H Blood Pressure [Ri ght Upper Arm] Pulse Oximetry 88 88 Oxygen Delivery Me thod Room Air Room Air <Dl Caldera MD - Last Filed: 02/14/25 09:12> Documenting provider has reviewed patient's vital signs: yes <Lizeth Lane MD - Last Filed: 02/14/25 23:56> Common normals: no apparent distress and alert <Lizeth Lane MD - Last Filed: 02/14/25 23:56> General appearance: well kempt <Lizeth Lane MD - Last Filed: 02/14/25 23:56> Other: Friendly and cooperative, good historian. Appears well nourished, well hydrated. <Lizeth Lane MD - Last Filed: 02/14/25 23:56> HENMT: Common normals: normocephalic, moist oral mucous membranes and oropharynx normal <Lizeth Lane MD - Last Filed: 02/14/25 23:56> Head and scalp: normocephalic <Lizeth Lane MD - Last Filed: 02/14/25 23:56> Face and sinus: normal facial exam <Lizeth Lane MD - Last Filed: 02/14/25 23:56> Mouth: oral and palatal mucosa normal <Lizeth Lane MD - Last Filed: 02/14/25 23:56> Eye: Common normals: conjunctivae normal <Lizeth Lane MD - Last Filed: 02/14/25 23:56> General eye: normal appearance of both eyes <MD Mike Torres Last Filed: 02/14/25 23:56> Conjunctiva: conjunctiva(e) normal <MD Mike Torres Last Filed: 02/14/25 23:56> Neck & C-Spine: Common normals: full ROM and no lymphadenopathy <MD Mike Torres Last Filed: 02/14/25 23:56> Cervical spine: cervical ROM normal; no cervical spine tenderness <MD Mike Torres Last Filed: 02/14/25 23:56> Chest: Common normals: inspection of chest normal and palpation of chest normal <MD Mike Torres Last Filed: 02/14/25 23:56> Resp: Common normals: normal respiratory effort, no use of accessory muscles and clear to auscultation bilaterally <MD Mike Torres Last Filed: 02/14/25 23:56> Effort & inspection: able to speak in complete sentences <MD Mike Torres Last Filed: 02/14/25 23:56> Auscultation: clear to auscultation bilaterally <MD Mike Torres Last Filed: 02/14/25 23:56> Cardio: Common normals: regular rate, regular rhythm, S1 normal heart sound, S2 normal heart sound and no murmurs <MD Mike Torres Last Filed: 02/14/25 23:56> Rate: regular rate <MD Mike Torres Last Filed: 02/14/25 23:56> Rhythm: regular rhythm <MD Mike Torres Last Filed: 02/14/25 23:56> Heart sounds: S1 normal and S2 normal <MD Mike Torres Last Filed: 02/14/25 23:56> GI: Common normals: Normal to inspection, nondistended, normoactive bowel sounds present, soft to palpation, non-tender, no hepatosplenomegaly and no masses <MD Mike Torres Last Filed: 02/14/25 23:56> Palpation: soft and no hepatosplenomegaly <MD Mike Torres Last Filed: 02/14/25 23:56> Other: Abdomen protuberant but no obvious signs of mass. Bowel sounds sound normoactive. <Lizeth Lane MD - Last Filed: 02/14/25 23:56> Extremity: Other: Hip is awkwardly externally rotated, shortened and flexed at the knee. He can bend and flex the ankle without difficulty. He has no tenderness to palpation of the right knee. He does have tenderness to palpation of the proximal femur at the hip but I do not detect any obvious deformity with palpation but it is d ifficult due to his protuberant abdomen. There is no tenderness to palpation of the outside of the hip bones or the suprapubic arch. The left leg moves freely at the hip knee and ankle with no tenderness or restriction. Normal pedal pulses bilaterally. <Lizeth Lane MD - Last Filed: 02/14/25 23:56> Neuro: Sensorium/orientation: alert <MD Mike Torres Last Filed: 02/14/25 23:56> Speech: speech normal <MD Mike Torres Last Filed: 02/14/25 23:56> Psych: Appearance: well kempt <MD Mike Torres Last Filed: 02/14/25 23:56> Attitude: engaged <MD Mike Torres Last Filed: 02/14/25 23:56> Activity/motor behavior: appropriate eye contact <MD Mike Torres Last Filed: 02/14/25 23:56> Memory/cognition: memory grossly intact <MD Mike Torres Last Filed: 02/14/25 23:56> Insight: insight good <MD Mike Torres Last Filed: 02/14/25 23:56> Judgement: judgment good <MD Mike Torres Last Filed: 02/14/25 23:56> Skin: Common normals: no rashes or lesions noted <MD Mike Torres Last Filed: 02/14/25 23:56> General skin exam: no rashes or lesions noted <Lizeth Lane MD - Last Filed: 02/14/25 23:56> Course Course ED Course: 85-year-old male with right hip pain following mechanical fall onto concrete outside his home. No evidence of head injury, not anticoagulated. Concern for right hip fracture. I have ordered an x-ray. If there are signs of fracture, will then order blood work and additional workup. No indications for these as such with a mechanical-type fall. Patient initially did not want pain medicine but I let him know that we will be moving the hip around quite a bit for imaging and a need for further exam to the tech soft tissue injury if the x- ray is negative, after this, he did agree to take some Tylenol and tramadol and these are ordered. Await x-ray and further workup and findings. <Lizeth Lane MD - Last Filed: 02/14/25 23:56> Reevaluation(s) Time of Reevaluation #1: 08:00 <Lizeth Lane MD - Last Filed: 02/14/25 23:56> Reevaluation #1: Reviewed x-ray, suspicious for fracture. Will consult Orthopedics, insert IV, will obtain CBC, basic metabolic panel EKG chest x-ray with intention for preoperative management. Ortho paged. Hospitalist team does accept care once ortho accepts and his ED workup is complete, they will need to be updated on time line. They have requested an IV fluid bolus and then starting maintenance fluids which is ordered now. <Lizeth Lane MD - Last Filed: 02/14/25 23:56> Vital Signs Vital signs: Initial Vital Signs Temperature 98.2 F 02/14/25 07:11 Temperature Source Temporal Artery Scan 02/14/25 07:11 Pulse Rate 59 L 02/14/25 07:11 Respiratory Rate 18 02/14/25 07:11 Blood Pressure 121/71 02/14/25 07:11 Blood Pressure Mean 87 02/14/25 07:11 Blood Pressure Position Sitting 02/14/25 07:11 Pulse Oximetry 91 02/14/25 07:11 Oxygen Delivery Method Room Air 02/14/25 07:11 Vital Signs Temperature 98.2 F 02/14/25 07:11 Pulse Rate 59 L 02/14/25 07:11 Respiratory Rate 18 02/14/25 07:11 Blood Pressure 121/71 02/14/25 07:11 Pulse Oximetry 91 02/14/25 07:11 Oxygen Delivery Method Room Air 02/14/25 07:11 Temperature 97.9 F 02/14/25 23:34 Pulse Rate 81 02/14/25 23:34 Respiratory Rate 20 02/14/25 23:34 Blood Pressure 118/70 02/14/25 23:34 Pulse Oximetry 90 02/14/25 23:34 Oxygen Delivery Method Nasal Cannula 02/14/25 23:34 Oxygen Flow Rate 2 02/14/25 23:34 <Lizeth Lane MD - Last Filed: 02/14/25 23:56> Initial Vital Signs Temperature 98.2 F 02/14/25 07:11 Temperature Source Temporal Artery Scan 02/14/25 07:11 Pulse Rate 59 L 02/14/25 07:11 Respiratory Rate 18 02/14/25 07:11 Blood Pressure 121/71 02/14/25 07:11 Blood Pressure Mean 87 02/14/25 07:11 Blood Pressure Position Sitting 02/14/25 07:11 Pulse Oximetry 91 02/14/25 07:11 Oxygen Delivery Method Room Air 02/14/25 07:11 Vital Signs Temperature 98.2 F 02/14/25 07:11 Pulse Rate 59 L 02/14/25 07:11 Respiratory Rate 18 02/14/25 07:11 Blood Pressure 121/71 02/14/25 07:11 Pulse Oximetry 91 02/14/25 07:11 Oxygen Delivery Method Room Air 02/14/25 07:11 Temperature 97.9 F 02/14/25 23:34 Pulse Rate 81 02/14/25 23:34 Respiratory Rate 20 02/14/25 23:34 Blood Pressure 118/70 02/14/25 23:34 Pulse Oximetry 90 02/14/25 23:34 Oxygen Delivery Method Nasal Cannula 02/14/25 23:34 Oxygen Flow Rate 2 02/14/25 23:34 <Dl Caldera MD - Last Filed: 02/14/25 09:12> Medications Administered Medications: Generic Name Dose Route Start Last Admin Trade Name Freq PRN Reason Stop Dose Admin Acetaminophen 650 mg 02/14/25 18:00 02/14/25 23:36 Acetaminophen 325 Mg Tablet PO 650 mg Q6H JR Administration Lactated Ringer's 1,000 mls @ 75 mls/hr 02/14/25 16:25 02/14/25 23:42 Lactated Ringers 1000 Ml IV 75 mls/hr .[id number] JR Administration Cefazolin Sodium 2 gm/ Sodium 100 mls @ 200 mls/hr 02/14/25 20:00 02/14/25 21:35 Chloride IVPB 02/15/25 12:29 Infused Q8H JR Infusion Oxycodone HCl 2.5 - 10 mg 02/14/25 16:25 02/14/25 20:37 Oxycodone 5 Mg Tablet PO 5 mg Q2H PRN Administration Pain Sennosides 2 tab 02/14/25 21:00 02/14/25 20:30 Sennosides 1 Tab Tablet PO 2 tab BID JR Administration Discontinued Medications Generic Name Dose Route Start Last Admin Trade Name Freq PRN Reason Stop Dose Admin Acetaminophen 650 mg 02/14/25 07:20 02/14/25 07:26 Acetaminophen 325 Mg Tablet PO 02/14/25 07:21 650 mg ONCE ONE Administration Cefazolin Sodium 0 gm 02/14/25 14:13 02/14/25 13:35 Cefazolin 1 Gm Inj IVP 02/14/25 14:14 2 gm ONCE ONE Administration Sodium Chloride 500 mls @ 500 mls/hr 02/14/25 08:21 02/14/25 09:31 0.9 % Sodium Chloride 500 Ml IV 02/14/25 09:20 Infused .Q1H ONE Infusion Lactated Ringer's 1,000 mls @ 125 mls/hr 02/14/25 08:25 02/14/25 20:39 Lactated Ringers 1000 Ml IV Infused .Q8H JR Infusion Tramadol HCl 50 mg 02/14/25 07:20 02/14/25 07:26 Tramadol Hcl 50 Mg Tablet PO 02/14/25 07:21 50 mg ONCE ONE Administration <Lizeth Lane MD - Last Filed: 02/14/25 23:56> Generic Name Dose Route Start Last Admin Trade Name Freq PRN Reason Stop Dose Admin Acetaminophen 650 mg 02/14/25 18:00 02/14/25 23:36 Acetaminophen 325 Mg Tablet PO 650 mg Q6H JR Administration Lactated Ringer's 1,000 mls @ 75 mls/hr 02/14/25 16:25 02/14/25 23:42 Lactated Ringers 1000 Ml IV 75 mls/hr .[id number] JR Administration Cefazolin Sodium 2 gm/ Sodium 100 mls @ 200 mls/hr 02/14/25 20:00 02/14/25 21:35 Chloride IVPB 02/15/25 12:29 Infused Q8H JR Infusion Oxycodone HCl 2.5 - 10 mg 02/14/25 16:25 02/14/25 20:37 Oxycodone 5 Mg Tablet PO 5 mg Q2H PRN Administration Pain Sennosides 2 tab 02/14/25 21:00 02/14/25 20:30 Sennosides 1 Tab Tablet PO 2 tab BID JR Administration Discontinued Medications Generic Name Dose Route Start Last Admin Trade Name Freq PRN Reason Stop Dose Admin Acetaminophen 650 mg 02/14/25 07:20 02/14/25 07:26 Acetaminophen 325 Mg Tablet PO 02/14/25 07:21 650 mg ONCE ONE Administration Cefazolin Sodium 0 gm 02/14/25 14:13 02/14/25 13:35 Cefazolin 1 Gm Inj IVP 02/14/25 14:14 2 gm ONCE ONE Administration Sodium Chloride 500 mls @ 500 mls/hr 02/14/25 08:21 02/14/25 09:31 0.9 % Sodium Chloride 500 Ml IV 02/14/25 09:20 Infused .Q1H ONE Infusion Lactated Ringer's 1,000 mls @ 125 mls/hr 02/14/25 08:25 02/14/25 20:39 Lactated Ringers 1000 Ml IV Infused .Q8H JR Infusion Tramadol HCl 50 mg 02/14/25 07:20 02/14/25 07:26 Tramadol Hcl 50 Mg Tablet PO 02/14/25 07:21 50 mg ONCE ONE Administration <Dl Caldera MD - Last Filed: 02/14/25 09:12> Medical Decision Making MDM Narrative Medical decision making narrative: This patient has a right hip fracture. I did connect with orthopedic surgeon on-call who will likely arrange for surgery today seeing that the patient has not taken any food today and is not on anticoagulants. Dr. Martinez, hospitalist on-call, has been contacted and for now he will be brought into the hospital for further planning. <Dl Caldera MD - Last Filed: 02/14/25 09:12> Lab Data Labs: Lab Results 02/14/25 Range/Units 08:10 WBC 17.14 H (4.50-11.00) K/uL RBC 4.49 (4.30-5.90) m/uL Hgb 13.8 (13.5-17.5) gm/dL Hct 42.9 (37.0-53.0) % MCV 96 (80-100) fL MCH 31 (26-34) pg MCHC 32 (32-36) gm/dL RDW Coeff of Angelica 13.7 (11.5-15.5) % Plt Count 355 (140-440) K/uL Neut % (Auto) 83.4 H (42.0-72.0) % Lymph % (Auto) 7.6 L (20-44) % [place] % (Auto) 7.0 (0.0-11.0) % Eos % (Auto) 1.1 (0.0-7.0) % Baso % (Auto) 0.4 (0.0-3.0) % Neut # (Auto) 14.30 H (1.7-7.0) K/uL Lymph # (Auto) 1.30 (0.90-2.90) K/uL [place] # (Auto) 1.20 H (0.00-0.90) K/UL Eos # (Auto) 0.20 (0.00-0.50) K/uL Baso # (Auto) 0.10 (0.00-0.30) K/uL Abs Immat Gran (auto) 0.10 (0.00-0.30) K/uL Imm/Tot Granulo (auto) 0.5 % Sodium 140 (135-149) mmol/L Potassium 5.3 H (3.6-5.1) mmol/L Chloride 106 (96-114) mmol/L Carbon Dioxide 26 (20-32) mmol/L Anion Gap 8 (7-15) mEq/L BUN 19 (7-30) mg/dL Creatinine 1.4 (0.5-1.5) mg/dL Estimated Creat Clear 36.72 Estimated GFR 50 ml/min Glucose 155 H (60-115) mg/dL Calcium 9.8 (8.4-10.6) mg/dL Vitamin B12 266 (243-894) pg/mL <Lizeth Lane MD - Last Filed: 02/14/25 23:56> Lab Results 02/14/25 Range/Units 08:10 WBC 17.14 H (4.50-11.00) K/uL RBC 4.49 (4.30-5.90) m/uL Hgb 13.8 (13.5-17.5) gm/dL Hct 42.9 (37.0-53.0) % MCV 96 (80-100) fL MCH 31 (26-34) pg MCHC 32 (32-36) gm/dL RDW Coeff of [place]ica 13.7 (11.5-15.5) % Plt Count 355 (140-440) K/uL Neut % (Auto) 83.4 H (42.0-72.0) % Lymph % (Auto) 7.6 L (20-44) % [place] % (Auto) 7.0 (0.0-11.0) % Eos % (Auto) 1.1 (0.0-7.0) % Baso % (Auto) 0.4 (0.0-3.0) % Neut # (Auto) 14.30 H (1.7-7.0) K/uL Lymph # (Auto) 1.30 (0.90-2.90) K/uL [place] # (Auto) 1.20 H (0.00-0.90) K/UL Eos # (Auto) 0.20 (0.00-0.50) K/uL Baso # (Auto) 0.10 (0.00-0.30) K/uL Abs Immat Gran (auto) 0.10 (0.00-0.30) K/uL Imm/Tot Granulo (auto) 0.5 % Sodium 140 (135-149) mmol/L Potassium 5.3 H (3.6-5.1) mmol/L Chloride 106 (96-114) mmol/L Carbon Dioxide 26 (20-32) mmol/L Anion Gap 8 (7-15) mEq/L BUN 19 (7-30) mg/dL Creatinine 1.4 (0.5-1.5) mg/dL Estimated Creat Clear 36.72 Estimated GFR 50 ml/min Glucose 155 H (60-115) mg/dL Calcium 9.8 (8.4-10.6) mg/dL Vitamin B12 266 (243-894) pg/mL <Dl Caldera MD - Last Filed: 02/14/25 09:12> Imaging Data X-ray right hip: My impression: Right femoral neck fracture <Lizeth Lane MD - Last Filed: 02/14/25 23:56> Radiologist's impression: IMPRESSION: Angulated mildly impacted right femoral neck fracture. Dictated by Jessica Smith MD @ 02/14/2025 7:53:45 AM <Lizeth Lane MD - Last Filed: 02/14/25 23:56> ECG Data Attestation: I personally reviewed and interpreted this ECG as follows: <Lizeth Lane MD - Last Filed: 02/14/25 23:56> Prior ECG tracings: available for review <Lizeth Lane MD - Last Filed: 02/14/25 23:56> Interpretation: Comparison EKG 07/03/2022. Today mild sinus bradycardia with a rate of 54 but otherwise normal intervals and axis. Normal ST and T-wave segments. No signs of ischemia, normal axis. Stable EKG. <Lizeth Lane MD - Last Filed: 02/14/25 23:56> Discharge Plan Discharge Clinical Impression: Hip fracture <Lizeth Lane MD - Last Filed: 02/14/25 23:56> Patient Disposition: Admitted As Observation <Lizeth Lane MD - Last Filed: 02/14/25 23:56> Condition: Unchanged <Lizeth Lane MD - Last Filed: 02/14/25 23:56> Activity Detail: Weightbear as tolerated right lower extremity Keep dressing on for 10 days. Dressing is waterproof. May shower. OT and PT daily at assisted facility. Ice and elevate operative extremity without restriction. Swelling and bruising will worsen within the first week. When swelling occurs, elevate the extremity above heart level several times a day and gently massage/pull soft tissue swelling toward hip. This allows gravity to assist in eliminating the swelling/edema. Wear compression stockings/delmis bandages as needed for swelling. If you drive, Do not drive while taking narcotic pain medication. Do not drink alcohol while taking narcotic pain medication. May drive when safe to do so and have full function of the extremities, this may take 6 weeks or more. Notify Orthopedics with any questions or concerns. ([phone]) <Lizeth Lane MD - Last Filed: 02/14/25 23:56> Weightbear as tolerated right lower extremity Keep dressing on for 10 days. Dressing is waterproof. May shower. OT and PT daily at assisted facility. Ice and elevate operative extremity without restriction. Swelling and bruising will worsen within the first week. When swelling occurs, elevate the extremity above heart level several times a day and gently massage/pull soft tissue swelling toward hip. This allows gravity to assist in eliminating the swelling/edema. Wear compression stockings/delmis bandages as needed for swelling. If you drive, Do not drive while taking narcotic pain medication. Do not drink alcohol while taking narcotic pain medication. May drive when safe to do so and have full function of the extremities, this may take 6 weeks or more. Notify Orthopedics with any questions or concerns. ([phone]) <Dl Caldera MD - Last Filed: 02/14/25 09:12>
[2025-02-14] MEDS: ACETAMINOPHEN 325 MG TABLET 650 MG PO ×3 (07:26→23:36)
[2025-02-14] MEDS: TRAMADOL HCL 50 MG TABLET PO (07:26)
[2025-02-14 08:20] LABS: Basophils Percent Auto 0.4 % (0.0-3.0); Eosinophils Percent Auto 1.1 % (0.0-7.0); Hematocrit 42.9 % (37.0-53.0); Hemoglobin* 13.8 gm/dL (13.5-17.5); Immature Granulocytes Pct Auto 0.5 %; Lymphocytes Percent Auto 7.6 % (20-44); Mean Corpuscular HGB Conc 32 gm/dL (32-36); Mean Corpuscular Hemoglobin 31 pg (26-34); Mean Corpuscular Volume 96 fL (80-100); Neutrophils Percent Auto 83.4 % (42.0-72.0); Platelet Count* 355 K/uL (140-440); RDW Coefficient of Variation % 13.7 % (11.5-15.5); Red Blood Count 4.49 m/uL (4.30-5.90); White Blood Count* 17.14 K/uL (4.50-11.00)
[2025-02-14 08:25] LABS: Slide Review Reflex No
[2025-02-14] MEDS: 0.9 % SODIUM CHLORIDE 500 ML 500 ML IV (08:32)
[2025-02-14 08:35] LABS: Chloride* 106 mmol/L (96-114); Sodium* 140 mmol/L (135-149)
[2025-02-14 08:36] LABS: Potassium* 5.3 mmol/L (3.6-5.1)
[2025-02-14 08:38] LABS: Blood Urea Nitrogen* 19 mg/dL (7-30); Creatinine* 1.4 mg/dL (0.5-1.5); Est. Creatinine Clearance* 36.72; Estimated Glomerular Filt Rate 50 ml/min
[2025-02-14 08:39] LABS: Anion Gap 8 mEq/L (7-15); Calcium* 9.8 mg/dL (8.4-10.6); Carbon Dioxide* 26 mmol/L (20-32); Glucose* 155 mg/dL (60-115)
--- OUTSIDE RECORDS SUMMARY | 2025-02-14 08:52 | XMS_ITS | Clinical Summary ---
Author Organization [facility] Address [address] [place] [address] Care Team Providers Care Ict Trainer Name Role Phone None Reported, Pcp Primary Care Provider Unavail able Source Comments Patient records contain information from all sites at [facility]. For routine questions regarding patient records, call [phone] during business hours, M-F 8:00 AM - 5:00 PM Central Time. Record requests for emergency care only can be directed to [phone] at any time.[facility] Allergies No known active allergies Medications * [...] cetirizine (ZyrTEC) 10 mg tablet daily. Active uquzxrzx-uhl-SR -lycopen-lutein (Centrum Silver Men) 300-600-300 mcg tablet [...] 03/09/2023 03/09/2023 Atherosclerotic Heart Diseas e Of [place] Coronary Artery Without Angina Pectoris 03/09/2023 03/09/2023 [...] (07/31/2020): Added automatically from request for surgery [id number] Hyperlipidemia 11/28/2010 Overview (03/09/2023): Takes simvastatin Hypertension [...] this topic Medical Devices Implanted Type Area Acetylene Torch Burner Device Identifier Shelf Expiration Date Model / Serial / Lot Cmnt Bn Hi Visc Pmma 40 - [id number] Implanted:Qty : 1 on 02/14/2021 by Gigi Gutierrez M.D. at [facility] [employer] Cement Right: Knee Kami 6191-1-001 / / Cmnt Bn Hi Visc Pmma 40 - [id number] Implanted:Qty : 1 on 02/14/2021 by Gigi Gutierrez M.D. at [facility] [employer] Right: Knee [place] 6191-1-001 / / Kn Fem Att Rt Cmnt Ps Sz-7 - [id number] Implanted:Qty : 1 on 02/14/2021 by Gigi Gutierrez M.D. at [facility] Knee Implant Right: Knee Depuy Synthes 12/09/2030 [id number] / / [id number] Pat Att Mdlzd 41 - [id number] Implanted:Qty : 1 on 02/14/2021 by Gigi Gutierrez M.D. at [facility] Knee Implant Right: Knee Depuy Synthes 07/09/2024 [id number] / / [id number] [id number] Tib Att Fb Sz6 - [id number] Implanted:Qty : 1 on 02/14/2021 by Gigi Gutierrez M.D. at [facility] Knee Implant Right: Knee Depuy Synthes 10/08/2030 [id number] / / [id number] Tib Att Ps 7x7 - [id number] Implanted:Qty : 1 on 02/14/2021 by Gigi Gutierrez M.D. at [facility] Knee Implant Right: Knee Depuy Synthes 03/08/2025 [id number] / / [id number] Procedures Procedure Name Priority Date/Time Associated Diagnosis [...] ADD-ON Final Resul t Performing Organization Address City/State/[facility] Co de Phone Number [facility] [address] [place] [address], [facility] [place] [address] from Last 3 Months or Most Recently Relevant to Health Maintenance Advance Directives For more information, please contact: [phone] Documents on File Type Date Recorded Patient Field Liability Generalist Expl anation Advance Directives 02/14/2021 9:19 AM Healt h Care Directive Healthcare Agents on File Name Relationship Healthcare Agent Relationship Communication Carleen Steele Daughter Health Care Agent [phone] (Work) [email or web address] Kristie Steele-Betty Daughter First Alternate Health Care Agent Care Teams Ict Trainer Relationship Specialty Start Date End Date None Reported, Pcp PCP - General Family Medicine 03/09/23
[2025-02-14] MEDS: LACTATED RINGERS 1000 ML 1,000 ML 125 ML IV ×2 (09:37→15:59)
--- NOTE | 2025-02-14 12:02 | PM.IMHP1 ---
Assessment and Plan Assessment and plan (1) Hip fracture: Problem comment: Right femoral neck fracture after accidental fall down 1 step onto concrete. Orthopedic consult with planned surgery later today Status: Acute (2) Imbalance: Problem comment: Chronic problem pre-existing this fall. Evaluate and treat. Consider assessing for neuropathy Status: Acute (3) Hallucinations: Problem comment: His daughter notes that he has episodes lasting up to 1/2 hour, often at night, where he is hallucinating that he is at work. 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 He is at risk for postoperative delirium Status: Acute (4) Stage 3b chronic kidney disease: Problem comment: Stable with creatinine at 1.4 and creatinine clearance of 37 Status: Acute (5) History of throat surgery: Problem comment: Remote history of surgery on his throat for probable benign growth, possibly involving epiglottis. Status: Acute (6) Type 2 diabetes mellitus, without long-term current use of insulin: Problem comment: Apparently well controlled. Continue to monitor. Status: Acute (7) COPD (chronic obstructive pulmonary disease): Problem comment: Moderately severe. Postoperatively will need monitoring as he is at risk for respiratory compromise Status: Acute (8) Chronic diarrhea: Problem comment: Chronic diarrhea due to previous colon surgery. May not need much laxative postop Status: Acute (9) Obstructive sleep apnea treated with continuous positive airway pressure (CPAP): Problem comment: Does not tolerate CPAP. Monitor for respiratory problems postop Status: Acute Plan Patient is admitted to the hospital for hip fracture surgery and monitoring and management of other medical problems outlined above. Probably will need rehab stay following this hospitalization. Total Time Spent Total Time Spent: Total time spent today is 80 minutes in review of outside records, coordination of care, discussion with patient and daughter and other providers ongoing plan of care. Hospitalist- H&P: HPI History of Present Illness Date Seen: 02/14/25 Chief complaint: Fall--hip injury Narrative: Aldo Steele is a 85 year old male with COPD and diabetes mellitus admitted to the hospital after an accidental fall at home this morning. He was going out of his house, walking down the steps to feed his animals. It was still dark outside. He thinks he missed the last step and fell landing on his right hip. His hip landed on concrete in the rest of him landed in the grass. He does not think he had any other injury. He did not hit his head or lose consciousness. He had his phone with him and called for help. He reports otherwise feeling well prior to falling. He has not had recent illness. He has not had anything to eat since last night. He does take aspirin daily and has had his morning medications today. No anticoagulation. His daughter, Carleen, notes that he has had occasional problems with falling. Patient reports that when he was taking a shower and closes his eyes he feels like he is going to fall over. He has moderately severe COPD which he reports is well controlled on Advair inhaler. He has diabetes mellitus which he reports has been fairly well controlled on metformin. Hemoglobin A1c was 6.5 in August 2024 His daughter also notes that he has been having occasional episodes for he is hallucinating. She will hear him at night talking loudly. 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 Manipulating imaginary keys in his hands. Talking to other people who are not in the room. This can last up to a 1/2 hour. Review of Systems Narrative: He urinates 2 or 3 times at night. He has chronic loose stools secondary to previous colon surgery. Takes Lomotil regularly. [facility] Medical History (Updated 02/14/25 @ 12:27 by Olman Martinez MD) Sinusitis (03/09/23) ?J32.9 - Chronic sinusitis, unspecified (ICD-10) Malignant neoplasm of colon (11/28/10) ?C18.9 - Malignant neoplasm of colon, unspecified (ICD-10) Hypertension (11/28/10) ?I10 - Essential (primary) hypertension (ICD-10) Hyperlipidemia (11/28/10) ?E78.5 - Hyperlipidemia, unspecified (ICD-10) Stage 3b chronic kidney disease ?N18.32 - Chronic kidney disease, stage 3b (ICD-10) Hallucinations ?R44.3 - Hallucinations, unspecified (ICD-10) Imbalance ?R26.89 - Other abnormalities of gait and mobility (ICD-10) Patient has active power of trauma nurse for property Mixed hyperlipidemia ?E78.2 - Mixed hyperlipidemia (ICD-10) Primary hypertension ?I10 - Essential (primary) hypertension (ICD-10) Type 2 diabetes mellitus, without long-term current use of insulin ?E11.9 - Type 2 diabetes mellitus without complications (ICD-10) COPD (chronic obstructive pulmonary disease) ?J44.9 - Chronic obstructive pulmonary disease, unspecified (ICD-10) Obstructive sleep apnea treated with continuous positive airway pressure (CPAP) ?G47.33 - Obstructive sleep apnea (adult) (pediatric) (ICD-10) ?Z99.89 - Dependence on other enabling machines and devices (ICD-10) Chronic diarrhea ?K52.9 - Noninfective gastroenteritis and colitis, unspecified (ICD-10) Small bowel obstruction ?K56.609 - Unspecified intestinal obstruction, unspecified as to partial versus complete obstruction (ICD-10) Respiratory syncytial virus bronchitis ?J20.5 - Acute bronchitis due to respiratory syncytial virus (ICD-10) Recurrent epistaxis ?R04.0 - Epistaxis (ICD-10) Nodule of upper lobe of right lung ?R91.1 - Solitary pulmonary nodule (ICD-10) Mediastinal lymphadenopathy ?R59.0 - Localized enlarged lymph nodes (ICD-10) Malignant neoplasm of colon (11/28/10) ?C18.9 - Malignant neoplasm of colon, unspecified (ICD-10) Coronary artery disease ?I25.10 - Atherosclerotic heart disease of [place] coronary artery without angina pectoris (ICD-10) Cholelithiasis ?K80.20 - Calculus of gallbladder without cholecystitis without obstruction (ICD-10) Adrenal nodule ?E27.8 - Other specified disorders of adrenal gland (ICD-10) Surgical History (Updated 02/14/25 @ 12:18 by Olman Martinez MD) Presence of right artificial knee joint (03/09/23) ?Z96.651 - Presence of right artificial knee joint (ICD-10) History of total right knee replacement ?Z96.651 - Presence of right artificial knee joint (ICD-10) History of throat surgery (11/28/10) ?Z98.890 - Other specified postprocedural states (ICD-10) History of colonoscopy ?Z98.890 - Other specified postprocedural states (ICD-10) History of appendectomy (11/28/10) ?Z90.49 - Acquired absence of other specified parts of digestive tract (ICD-10) Family History Father Alcoholism Social History (Updated 02/14/25 @ 12:19 by Olman Martinez MD) Narrative: Former smoker. Drinks alcohol, approximately 2 drinks every other day. . Pt's , Latisha, in summer 2017 secondary to COPD. Lives with his daughter Carleen. She is healthcare power of trauma nurse. Code status is DNR What is your current living situation?: I presently have a place to live Problems where you live: no known problems Problems where you live details: none In the past 12 months, utilities in danger of being shut off: no In past 12 months, lack of transportation kept you from medical appts, meetings, work, or getting things needed for daily living: no In the past 12 mos, have been you worried that your food would run out before you had money to buy more?: never true In the past 12 mos, the food you bought just didn't last and you didn't have money to buy more?: never true Highest level of school completed/degree received: high school graduate Smoking Status: Former smoker What tobacco products do you use: cigarettes Smoking quit date/years: >15 years ago Do you use any of these nicotine containing products: None Second hand tobacco smoke exposure: No How often do you have a drink containing alcohol: monthly or less Alcohol type: beer How many standard drinks containing alcohol do you have on a typical day: 1 or 2 How often do you have six or more drinks on one occasion: Never AUDIT-C Alcohol total score: 1 Non-prescribed substance use: denies use Caffeine: Yes How often does anyone, including family, friends and others, physically hurt you: never How often does anyone, including family, friends and others, insult or talk down to you: never How often does anyone, including family, friends and others, threaten you with harm: never How often does anyone, including family, friends and others, scream or curse at you: never service: No Meds Home Medications and Allergies Home Medications ?Medication ?Instructions ?Recorded ?Confirmed ?Type aspirin 81 mg tablet,delayed 81 mg PO DAILY 07/04/22 02/14/25 History release multivitamin (Daily Multi-Vitamin 1 tab PO QAM 07/04/22 02/14/25 History tablet) ipratropium 0.5 mg-albuterol 3 mg 3 ml inhalation Q4H PRN wheezing 02/05/24 02/14/25 History (2.5 mg base)/3 mL nebulization soln diphenhydramine HCl 25 mg capsule 25 mg PO QHS 02/14/25 02/14/25 History (Aler-Cap) diphenoxylate-atropine 2.5 1 - 2 tab PO BID 02/14/25 02/14/25 History mg-0.025 mg tablet (Lomotil) escitalopram oxalate 20 mg tablet 20 mg PO DAILY 02/14/25 02/14/25 History guar gum (Nutrisource Fiber packet) 1 tbsp PO DAILY PRN 02/14/25 02/14/25 History metformin 500 mg tablet,extended 500 mg PO DAILY 02/14/25 02/14/25 History release 24 hr metoprolol succinate 100 mg 100 mg PO DAILY 02/14/25 02/14/25 History tablet,extended release 24 hr tamsulosin 0.4 mg capsule 0.4 mg PO DAILY 02/14/25 02/14/25 History Allergies Allergy/AdvReac Type Severity Reaction Status Date / Time No Known Drug Allergies Allergy Verified 09/02/24 09:28 Exam Narrative: Exam Narrative: He is alert and appears in no distress. He gives his own history. Additional history is obtained from his daughter. Head is without trauma. Eyes normal. Oropharynx with small airway. Neck is supple without mass or adenopathy. Respirations with diminished breath sounds throughout. No marked wheezing. No consolidation. Cardiovascular: S1, S2, regular rate and rate and rhythm. No murmur gallop or rub. Abdomen: Bowel sounds active. Abdomen is soft without tenderness or mass. External genitalia normal. Right hip with swelling. Right lower extremity with external rotation at the hip. Shortened leg. Knee without apparent trauma. Palpation over the knee is nontender. He does not tolerate motion in his right lower extremity except at the foot and ankle which is normal. Intact pulses and sensation. Trace edema. Left lower extremity is normal. Const: Vital Signs, click to edit/add: Vital Signs - 24 hr 02/14/25 07:11 02/14/25 09:18 02/14/25 10:00 Temperature 98.2 F 97.8 F Pulse Rate [Pulse Oximeter] 59 L 58 L Respiratory Rate 18 18 16 Blood Pressure [Le ft Arm] Blood Pressure [Ri ght Upper Arm] 121/71 137/72 Pulse Oximetry 91 89 88 Oxygen Delivery Me thod Room Air Room Air Room Air 02/14/25 10:03 Temperature 98.9 F Pulse Rate [Pulse Oximeter] 58 L Respiratory Rate 16 Blood Pressure [Le ft Arm] 123/75 Blood Pressure [Ri ght Upper Arm] Pulse Oximetry 88 Oxygen Delivery Me thod Room Air Documenting provider has reviewed patient's vital signs: yes Hospitalist - H&P: Result Labs Labs: Short CBC 02/14/25 Range/Units 08:10 WBC 17.14 H (4.50-11.00) K/uL Hgb 13.8 (13.5-17.5) gm/dL Hct 42.9 (37.0-53.0) % Plt Count 355 (140-440) K/uL BMP 02/14/25 08:10 Sodium 140 Potassium 5.3 H Chloride 106 Carbon Dioxide 26 BUN 19 Creatinine 1.4 Glucose 155 H Calcium 9.8 ECG Attestation: I personally reviewed and interpreted this ECG as follows: (Sinus bradycardia with a rate of 54. Poor R-wave progression anteriorly, possibly indicating previous infarct. No acute ST-T changes.) Imaging Chest x-ray: Radiologist's impression: INDICATION: Fall. TECHNIQUE: Chest 1 views. COMPARISON: X-ray chest June 2022. FINDINGS/IMPRESSION: Patient is rotated to the right. No focal pulmonary infiltrate, significant effusion or pneumothorax. Redemonstration of left basilar atelectasis. Cardiac size is within normal limit without pulmonary edema. Hip radiograph: Radiologist's impression: INDICATION: Fall, right hip pain COMPARISON: None. TECHNIQUE: AP pelvis, AP right hip, cross-table lateral right hip. FINDINGS: There is an acute fracture across the base of the right femoral neck. The fracture is mildly impacted and there is almost 90 degrees of angulation at the femoral neck shaft angle. Normal hip joint alignment. Joint spaces are normal. No subchondral remodeling at the hip joint. No destructive focal bone lesions. Atherosclerotic vascular calcifications. IMPRESSION: Angulated mildly impacted right femoral neck fracture.
--- NOTE | 2025-02-14 12:30 | CRLHL7_ITS ---
For Patients: As a result of the Century Cures Act, medical imaging exams and procedure reports are released immediately into your electronic medical record. You may view this report before your referring provider. If you have questions, please contact your health care provider. HISTORY: Intramedullary nail placement. TECHNIQUE: Fluoroscopy provided intraoperatively for the Orthopedic surgery service. Several spot films acquired. COMPARISON: 02/14/2025. FINDINGS: Right hip screw and femoral intramedullary nail fixation a proximal femoral fracture. Hardware intact and appropriately seated. IMPRESSION: 1. Internal fixation of a right proximal femoral fracture. Hardware intact and appropriately seated. Dictated by Brian Zuñiga MD @ 02/15/2025 6:30:51 AM (Electronically Signed)
[2025-02-14] MEDS: CEFAZOLIN 1 GM inj IVP (13:35)
--- NOTE | 2025-02-14 13:44 | P.NB_ITS ---
Nerve Block Nerve Block Time Seen by Provider: 13:35 Date Seen: 02/14/25 Type of block requested by surgeon for post-operative analgesia: FANY/LFCN Side: right Time out performed: Yes Verification of patient name: Yes Verification of date of : Yes Site marking: site marked Name of person performing procedure: Areli Sharif Continuous monitoring Was continuous monitoring of O2 sat, B/P, nuclear monitoring technician, recorded every 15 minutes?: Yes Procedure Checklist: sterile prep, needles and gloves Ultrasound guided. Images saved: Yes Medications given in 5ml increments after negative aspiration: Ropivicaine %: 0.5 mL: 30 Needle gauge: 20 Precedex (mcg): 25 Patient tolerated procedure well: Yes Block Charges Block Charge (with Pro Fee): Femoral Nerve Use of Ultrasound Machine for Block: Yes- US Guidance/pain block
[2025-02-14 13:53] LABS: Vitamin B12* 266 pg/mL (243-894)
--- NOTE | 2025-02-14 14:38 | P.ANES_ITS ---
Anesthesia Charges Start Date/Time Anesthesia Start Date: 02/14/25 Anesthesia Start Time: 13:12 Stop Date/Time Anesthesia Stop Date: 02/14/25 Anesthesia Stop Time: 15:49 Summary Emergency: MDA Extremes of Age - Over 70 or under 1: MDA Coding CPT Codes CPT Codes: ANESTH SURGERY OF FEMUR - 19821 ([id number]) P3 - PATIENT W/SEVERE SYS DISEASE, QK - POLICY WRITER SALES 2-4 CNCRNT ANES PROC, QX - SEGMENT BLOCK LAYER SVC W/ MD MED DIRECTION Additional Codes: Summary - Emergency: MDA ([id number]) Summary - Extremes of Age - Over 70 or under 1: MDA ([id number])
--- NOTE | 2025-02-14 14:38 | W.ANESCHARGE ---
Anesthesia Charges Start Date/Time Anesthesia Start Date: 02/14/25 Anesthesia Start Time: 13:12 Stop Date/Time Anesthesia Stop Date: 02/14/25 Anesthesia Stop Time: 15:49 Summary Emergency: MDA Extremes of Age - Over 70 or under 1: MDA Coding CPT Codes CPT Codes: ANESTH SURGERY OF FEMUR - 86621 ([id number]) P3 - PATIENT W/SEVERE SYS DISEASE, QK - PRODUCTION WELDER 2-4 CNCRNT ANES PROC, QX - SPA MANAGER SVC W/ MD MED DIRECTION Additional Codes: Summary - Emergency: MDA ([id number]) Summary - Extremes of Age - Over 70 or under 1: MDA ([id number])
--- NOTE | 2025-02-14 15:01 | P.ORCN_ITS ---
History of Present Illness HPI Date Seen: 02/14/25 Chief complaint: Fall--hip injury Narrative: The patient is an 85-year-old community ambulator without assist. He fell today, sustaining a right hip fracture. He has never injured this hip or had surgery on it previously. He has type 2 diabetes, does not smoke cigarettes and is not on blood thinners. Review of Systems Narrative: The patient denies: Fever, night sweats, shaking chills, nausea, vomiting, diarrhea, chest pain, chest pressure, shortness of breath, no rash, no change in hearing or vision, no issues with bleeding or clotting [facility] Medical History (Updated 02/14/25 @ 12:27 by Olman Martinez MD) Sinusitis (03/09/23) ?J32.9 - Chronic sinusitis, unspecified (ICD-10) Malignant neoplasm of colon (11/28/10) ?C18.9 - Malignant neoplasm of colon, unspecified (ICD-10) Hypertension (11/28/10) ?I10 - Essential (primary) hypertension (ICD-10) Hyperlipidemia (11/28/10) ?E78.5 - Hyperlipidemia, unspecified (ICD-10) Stage 3b chronic kidney disease ?N18.32 - Chronic kidney disease, stage 3b (ICD-10) Hallucinations ?R44.3 - Hallucinations, unspecified (ICD-10) Imbalance ?R26.89 - Other abnormalities of gait and mobility (ICD-10) Patient has active power of insurance attorney for property Mixed hyperlipidemia ?E78.2 - Mixed hyperlipidemia (ICD-10) Primary hypertension ?I10 - Essential (primary) hypertension (ICD-10) Type 2 diabetes mellitus, without long-term current use of insulin ?E11.9 - Type 2 diabetes mellitus without complications (ICD-10) COPD (chronic obstructive pulmonary disease) ?J44.9 - Chronic obstructive pulmonary disease, unspecified (ICD-10) Obstructive sleep apnea treated with continuous positive airway pressure (CPAP) ?G47.33 - Obstructive sleep apnea (adult) (pediatric) (ICD-10) ?Z99.89 - Dependence on other enabling machines and devices (ICD-10) Chronic diarrhea ?K52.9 - Noninfective gastroenteritis and colitis, unspecified (ICD-10) Small bowel obstruction ?K56.609 - Unspecified intestinal obstruction, unspecified as to partial versus complete obstruction (ICD-10) Respiratory syncytial virus bronchitis ?J20.5 - Acute bronchitis due to respiratory syncytial virus (ICD-10) Recurrent epistaxis ?R04.0 - Epistaxis (ICD-10) Nodule of upper lobe of right lung ?R91.1 - Solitary pulmonary nodule (ICD-10) Mediastinal lymphadenopathy ?R59.0 - Localized enlarged lymph nodes (ICD-10) Malignant neoplasm of colon (11/28/10) ?C18.9 - Malignant neoplasm of colon, unspecified (ICD-10) Coronary artery disease ?I25.10 - Atherosclerotic heart disease of [place] coronary artery without angina pectoris (ICD-10) Cholelithiasis ?K80.20 - Calculus of gallbladder without cholecystitis without obstruction (ICD-10) Adrenal nodule ?E27.8 - Other specified disorders of adrenal gland (ICD-10) Surgical History (Updated 02/14/25 @ 12:18 by Olman Martinez MD) Presence of right artificial knee joint (03/09/23) ?Z96.651 - Presence of right artificial knee joint (ICD-10) History of total right knee replacement ?Z96.651 - Presence of right artificial knee joint (ICD-10) History of throat surgery (11/28/10) ?Z98.890 - Other specified postprocedural states (ICD-10) History of colonoscopy ?Z98.890 - Other specified postprocedural states (ICD-10) History of appendectomy (11/28/10) ?Z90.49 - Acquired absence of other specified parts of digestive tract (ICD- 10) Family History Father Alcoholism Social History (Updated 02/14/25 @ 12:19 by Olman Martinez MD) Narrative: Former smoker. Drinks alcohol, approximately 2 drinks every other day. . Pt's , Latisha, in summer 2017 secondary to COPD. Lives with his daughter Carleen. She is healthcare power of insurance attorney. Code status is DNR What is your current living situation?: I presently have a place to live Problems where you live: no known problems Problems where you live details: none In the past 12 months, utilities in danger of being shut off: no In past 12 months, lack of transportation kept you from medical appts, meetings, work, or getting things needed for daily living: no In the past 12 mos, have been you worried that your food would run out before you had money to buy more?: never true In the past 12 mos, the food you bought just didn't last and you didn't have money to buy more?: never true Highest level of school completed/degree received: high school graduate Smoking Status: Former smoker What tobacco products do you use: cigarettes Smoking quit date/years: >15 years ago Do you use any of these nicotine containing products: None Second hand tobacco smoke exposure: No How often do you have a drink containing alcohol: monthly or less Alcohol type: beer How many standard drinks containing alcohol do you have on a typical day: 1 or 2 How often do you have six or more drinks on one occasion: Never AUDIT-C Alcohol total score: 1 Non-prescribed substance use: denies use Caffeine: Yes How often does anyone, including family, friends and others, physically hurt you : never How often does anyone, including family, friends and others, insult or talk down to you: never How often does anyone, including family, friends and others, threaten you with harm: never How often does anyone, including family, friends and others, scream or curse at you: never service: No Meds Home Medications and Allergies Home Medications ?Medication ?Instructions ?Recorded ?Confirmed ?Type aspirin 81 mg tablet,delayed 81 mg PO DAILY 07/04/22 02/14/25 History release multivitamin (Daily Multi-Vitamin 1 tab PO QAM 07/04/22 02/14/25 History tablet) ipratropium 0.5 mg-albuterol 3 mg 3 ml inhalation Q4H PRN wheezing 02/05/24 02/14/25 History (2.5 mg base)/3 mL nebulization soln diphenhydramine HCl 25 mg capsule 25 mg PO QHS 02/14/25 02/14/25 History (Aler-Cap) diphenoxylate-atropine 2.5 1 - 2 tab PO BID 02/14/25 02/14/25 History mg-0.025 mg tablet (Lomotil) escitalopram oxalate 20 mg tablet 20 mg PO DAILY 02/14/25 02/14/25 History guar gum (Nutrisource Fiber packet) 1 tbsp PO DAILY PRN 02/14/25 02/14/25 History metformin 500 mg tablet,extended 500 mg PO DAILY 02/14/25 02/14/25 History release 24 hr metoprolol succinate 100 mg 100 mg PO DAILY 02/14/25 02/14/25 History tablet,extended release 24 hr tamsulosin 0.4 mg capsule 0.4 mg PO DAILY 02/14/25 02/14/25 History Allergies Allergy/AdvReac Type Severity Reaction Status Date / Time No Known Drug Allergies Allergy Verified 09/02/24 09:28 Ortho Exam Narrative Exam Narrative: The patient is alert and oriented x3, in no acute distress, they are able to converse in a normal speaking voice without obvious hearing loss and with nonlabored breathing. The patient is examined supine on the hospital bed. The skin over the right hip is intact, no swelling, no ecchymosis, no surgical scars. CMS to the foot is normal. Const Vital Signs, click to edit/add: Vital Signs - 24 hr 02/14/25 07:11 02/14/25 09:18 02/14/25 10:00 Temperature 98.2 F 97.8 F Pulse Rate [Pulse Oximeter] 59 L 58 L Respiratory Rate 18 18 16 Blood Pressure [Left Arm] Blood Pressure [Right Upper Arm] 121/71 137/72 Pulse Oximetry 91 89 88 Oxygen Delivery Method Room Air Room Air Room Air 02/14/25 10:03 02/14/25 12:12 Temperature 98.9 F 99.2 F Pulse Rate [Pulse Oximeter] 58 L 66 Respiratory Rate 16 16 Blood Pressure [Left Arm] 123/75 135/94 H Blood Pressure [Right Upper Arm] Pulse Oximetry 88 88 Oxygen Delivery Method Room Air Room Air Results Labs Labs: Laboratory Results - last 48 hr 02/14/25 02/14/25 08:10 12:47 WBC 17.14 H RBC 4.49 Hgb 13.8 Hct 42.9 MCV 96 MCH 31 MCHC 32 RDW Coeff of Angelica 13.7 Plt Count 355 Neut % (Auto) 83.4 H Lymph % (Auto) 7.6 L Faulk % (Auto) 7.0 Eos % (Auto) 1.1 Baso % (Auto) 0.4 Neut # (Auto) 14.30 H Lymph # (Auto) 1.30 Faulk # (Auto) 1.20 H Eos # (Auto) 0.20 Baso # (Auto) 0.10 Abs Immat Gran (auto) 0.10 Imm/Tot Granulo (auto) 0.5 Sodium 140 Potassium 5.3 H Chloride 106 Carbon Dioxide 26 Anion Gap 8 BUN 19 Creatinine 1.4 Estimated Creat Clear 36.72 Estimated GFR 50 Glucose 155 H Calcium 9.8 Vitamin B12 266 Lab Acknowledgement Test Added Diagnostic results Additional Comments: An AP pelvis, AP and cross-table lateral view of the right hip show a 2 part high intertrochanteric/basicervical fracture of the hip. There is no pre- existing hip joint arthritis, no obvious pathologic lesion. Assessment and Plan Assessment and plan (1) Hip fracture: Problem comment: Right femoral neck fracture after accidental fall down 1 step onto concrete. Orthopedic consult with planned surgery later today Status: Acute Total time spent: Total time spent is greater than 50% in coordination of care (as documented) at patient's floor/unit and/or counseling patient: (2) Imbalance: Problem comment: Chronic problem pre-existing this fall. Evaluate and treat. Consider assessing for neuropathy Status: Acute Total time spent: Total time spent is greater than 50% in coordination of care (as documented) at patient's floor/unit and/or counseling patient: (3) Hallucinations: Problem comment: His daughter notes that he has episodes lasting up to 1/2 hour, often at night, where he is hallucinating that he is at work. 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 He is at risk for postoperative delirium Status: Acute Total time spent: Total time spent is greater than 50% in coordination of care (as documented) at patient's floor/unit and/or counseling patient: (4) Stage 3b chronic kidney disease: Problem comment: Stable with creatinine at 1.4 and creatinine clearance of 37 Status: Acute Total time spent: Total time spent is greater than 50% in coordination of care (as documented) at patient's floor/unit and/or counseling patient: (5) History of throat surgery: Problem comment: Remote history of surgery on his throat for probable benign growth, possibly involving epiglottis. Status: Acute Total time spent: Total time spent is greater than 50% in coordination of care (as documented) at patient's floor/unit and/or counseling patient: (6) Type 2 diabetes mellitus, without long-term current use of insulin: Problem comment: Apparently well controlled. Continue to monitor. Status: Acute Total time spent: Total time spent is greater than 50% in coordination of care (as documented) at patient's floor/unit and/or counseling patient: (7) COPD (chronic obstructive pulmonary disease): Problem comment: Moderately severe. Postoperatively will need monitoring as he is at risk for respiratory compromise Status: Acute Total time spent: Total time spent is greater than 50% in coordination of care (as documented) at patient's floor/unit and/or counseling patient: (8) Chronic diarrhea: Problem comment: Chronic diarrhea due to previous colon surgery. May not need much laxative postop Status: Acute Total time spent: Total time spent is greater than 50% in coordination of care (as documented) at patient's floor/unit and/or counseling patient: (9) Obstructive sleep apnea treated with continuous positive airway pressure (CPAP): Problem comment: Does not tolerate CPAP. Monitor for respiratory problems postop Status: Acute Total time spent: Total time spent is greater than 50% in coordination of care (as documented) at patient's floor/unit and/or counseling patient: Plan Assessment: Two part right hip intertrochanteric/basicervical hip fracture Plan: He has been medically cleared for surgery, therefore we will plan to take him to the operating room today for ORIF of his hip fracture.
--- NOTE | 2025-02-14 15:04 | P.ORPRC_ITS ---
Procedure Note Date of procedure: 02/14/25 Procedure: PREOPERATIVE DIAGNOSIS: Right hip 2 part intertrochanteric fracture POSTOPERATIVE DIAGNOSIS: Right hip 2 part intertrochanteric fracture NAME OF OPERATION: Right hip fracture ORIF SURGEON: Nahun Jade MD MARINE ERECTOR: Bina Bullock PA-C, Brianne Paiz MS IMPLANTS: Synthes intramedullary hip screw 12 mm x 170 mm with a 100 mm lag screw and a 38 mm distal interlocking screw ANESTHESIA: Spinal ESTIMATED BLOOD LOSS: 25 mL COMPLICATIONS: None SPECIMENS: None DRAINS: None PREOPERATIVE ANTIBIOTICS: Ancef 2 g INDICATIONS: The patient is a 85-year-old who fell yesterday sustaining a 2 part intertrochanteric fracture of the right hip. They were admitted for workup and care. They have been medically cleared for surgery. The risks, benefits and expected outcomes were discussed in detail. These included but were not limited to: Infection, bleeding, injury to blood vessel or nerve, venous thromboembolism. All questions were answered to their satisfaction. Use of an metal moulder's assistant was necessary for patient positioning and safety, soft tissue retraction and closure, dressing application, and transfer of the patient to and from the hospital bed to the fracture table. PROCEDURE: Spinal anesthesia was administered. The patient was placed supine on the fracture table. The right lower extremity was prepped and draped in the usual sterile fashion. The limb was placed in longitudinal traction. Our p rovisional reduction was confirmed with the C-arm. The guide pin was placed percutaneously to the tip of the greater trochanter. It was advanced into the canal. Its placement was confirmed with the image intensifier in both AP and lateral views. We then made a stab incision around the guide pin. The soft tissue sleeve was advanced to the tip of the trochanter. The opening reamer was used. The intramedullary nail was placed. The guide pin was taken to the subchondral bone of the femoral head on both the AP and lateral views. It was placed in the posterior, inferior aspect of the head. The drill and the tap were used. We placed the 100 mm lag screw. Our reduction remains anatomic. Traction was released. The lag screw was set to dynamic mode. That is it was not locked. We placed the distal interlocking screw. This construct was imaged in the AP and lateral views and was felt to be well placed with an anatomic reduction. The wounds were irrigated with normal saline. They were closed with Vicryl deep and Monocryl in the skin. A dry dressing was applied. Sponge and needle counts were correct x2. The patient tolerated the procedure well. There were no apparent complications. They were carefully transferred to the hospital bed and taken to the postanesthesia care unit in satisfactory condition. PLAN: The patient will be mobilized with physical therapy. They may w eightbear as tolerates on the right lower extremity. Xarelto will be used for DVT prophylaxis. They will be discharged to a senior care once medically appropriate.
--- NOTE | 2025-02-14 15:56 | P.ANES_ITS ---
Anesthesia Charges Start Date/Time Anesthesia Start Date: 02/14/25 Anesthesia Start Time: 13:12 Stop Date/Time Anesthesia Stop Date: 02/14/25 Anesthesia Stop Time: 15:49 Summary Emergency: JEWELRY SALESPERSON Extremes of Age - Over 70 or under 1: JEWELRY SALESPERSON Coding CPT Codes CPT Codes: ANESTH HIP JOINT SURGERY - 47122 ([id number]) P3 - PATIENT W/SEVERE SYS DISEASE, QK - RADIOGRAPHER TECHNOLOGIST 2-4 CNCRNT ANES PROC, QX - JEWELRY SALESPERSON SVC W/ MD MED DIRECTION Additional Codes: Summary - Emergency: JEWELRY SALESPERSON ([id number]) Summary - Extremes of Age - Over 70 or under 1: JEWELRY SALESPERSON ([id number])
--- NOTE | 2025-02-14 15:56 | W.ANESCHARGE ---
Anesthesia Charges Start Date/Time Anesthesia Start Date: 02/14/25 Anesthesia Start Time: 13:12 Stop Date/Time Anesthesia Stop Date: 02/14/25 Anesthesia Stop Time: 15:49 Summary Emergency: HIGH SCHOOL ADMISSIONS REPRESENTATIVE Extremes of Age - Over 70 or under 1: HIGH SCHOOL ADMISSIONS REPRESENTATIVE Coding CPT Codes CPT Codes: ANESTH HIP JOINT SURGERY - 38415 ([id number]) P3 - PATIENT W/SEVERE SYS DISEASE, QK - FUELS SALES REPRESENTATIVE 2-4 CNCRNT ANES PROC, QX - HIGH SCHOOL ADMISSIONS REPRESENTATIVE SVC W/ MD MED DIRECTION Additional Codes: Summary - Emergency: HIGH SCHOOL ADMISSIONS REPRESENTATIVE ([id number]) Summary - Extremes of Age - Over 70 or under 1: HIGH SCHOOL ADMISSIONS REPRESENTATIVE ([id number])
--- NOTE | 2025-02-14 16:04 | SUR.PHASEI ---
Patient came to PACU stated he was comfortable without nausea when asked, he was drowsy and resting comfortably after I spoke with him
--- NOTE | 2025-02-14 16:16 | SUR.PHASEI ---
Patient is awake and oriented, remains comfortable, Vital signs stable. Patient meets discharge criteria from PACU
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
[2025-02-14] MEDS: OXYCODONE 5 MG TABLET PO ×2 (18:05→20:37)
--- NOTE | 2025-02-14 19:01 | PC.NURSE ---
End of Shift: Patient pleasant and cooperative, alert and oriented. Patient vitally stable, lungs clear, BS WNL, IV running LR at 75. Patient on NC 1.5 L with sats at 88. Patient rates pain 1/10, scheduled tylenol and 5mg of oxy given. Patient has not urinated yet or ate but is drinking fluids. Patient currently up in the chair, 1 assist/walker.Active ice applied to right hip. Right hip dressing C/D/I.
[2025-02-14] MEDS: CEFAZOLIN 2 GM in 0.9 % SODIUM CHLORIDE Mini-bag 100 ML IVPB (20:29)
[2025-02-14] MEDS: SENNOSIDES 1 TAB TABLET 2 TAB PO (20:30)
[2025-02-14 22:47] LABS: Appearance Urine Slightly Cloudy (Clear); Bilirubin Urine Negative (Negative); Blood Urine Negative (Negative); Color Urine Yellow (Yellow); Glucose Urine Negative (Negative); Ketones Urine Negative (Negative); Leukocyte Esterase Urine Negative (Negative); Nitrite Urine Negative (Negative); Protein Urine 1+ (Negative); Specific Gravity Urine 1.025 (1.000-1.030); Urobilinogen Urine 0.2 (0.2-1.0)
[2025-02-14 22:58] LABS: Amorphous Sediment Urine Few; Bacteria Urine Few; Squamous Epithelial Cell Urine Few (None-Few)
[2025-02-14 22:59] LABS: Mucus Urine Moderate
[2025-02-14] MEDS: LACTATED RINGERS 1000 ML 1,000 ML 75 ML IV (23:42)
[2025-02-15] VITALS (7 sets, daily range): BP systolic 107–136; BP diastolic 61–81; PULSE 76–86; RESP 16–20; TEMP 36.4–37.1; O2SAT 89–92
[2025-02-15] MEDS: CEFAZOLIN 2 GM in 0.9 % SODIUM CHLORIDE Mini-bag 100 ML IVPB (03:36)
[2025-02-15] MEDS: ACETAMINOPHEN 325 MG TABLET 650 MG PO ×4 (05:57→23:50)
--- NOTE | 2025-02-15 06:32 | PC.NURSE ---
End of shift [id number]: A&O pleasant and cooperative. VSS but pt remains on 2L NC to maintain sats >90%. Denies pain. Dressing to hip c/d/i. +CMS w/ strong plantar/dorsi flexion. Manager Relocation encouraged increased PO fluid intake. Moved from recliner to bed w/ A2 walker and GB. Declined any food overnight. Using call light appropriately.
[2025-02-15 07:03] LABS: Hematocrit 37.3 % (37.0-53.0); Mean Corpuscular HGB Conc 32 gm/dL (32-36); Mean Corpuscular Hemoglobin 31 pg (26-34); Mean Corpuscular Volume 96 fL (80-100); Platelet Count* 320 K/uL (140-440); White Blood Count* 14.27 K/uL (4.50-11.00)
[2025-02-15 07:15] LABS: Slide Review Reflex No
[2025-02-15 07:24] LABS: Potassium* 4.7 mmol/L (3.6-5.1); Sodium* 138 mmol/L (135-149)
[2025-02-15 07:27] LABS: Blood Urea Nitrogen* 19 mg/dL (7-30); Creatinine* 1.3 mg/dL (0.5-1.5); Est. Creatinine Clearance* 39.55; Estimated Glomerular Filt Rate 54 ml/min
--- NOTE | 2025-02-15 07:44 | P.ORPN_ITS ---
Subjective Subjective Time Seen by Provider: 07:44 Date Seen: 02/15/25 Principal diagnosis: Status post right hip IM rodding Interval history: Aldo is comfortable in his bed this morning. He states he has discomfort with transitioning from bed to recliner. He states he has not been able to put a lot of weight on the right lower extremity. Ortho Exam Narrative Exam Narrative: Alert . Patient is in no acute distress. Converses without labored breathing. Hearing is grossly intact. Ambulates with a Walker. Examination the right lower extremity shows dressing is intact. No erythema or warmth or sign of infection. Soft tissue edema is present. Bilateral calves are soft and nontender. CMS intact right lower extremity. He is able to dorsiflex and plantar flex both ankles. Const Vital Signs, click to edit/add: Vital Signs - 24 hr 02/14/25 09:18 02/14/25 10:00 02/14/25 10:03 Temperature 97.8 F 98.9 F Pulse Rate Pulse Rate [Pulse Oximeter] 58 L 58 L Respiratory Rate 18 16 16 Blood Pressure Blood Pressure [Left Arm] 123/75 Blood Pressure [Right Arm] Blood Pressure [Right Upper Arm] 137/72 Pulse Oximetry 89 88 88 Oxygen Delivery Method Room Air Room Air Room Air Oxygen Flow Rate 02/14/25 12:12 02/14/25 15:45 02/14/25 15:50 Temperature 99.2 F 98.4 F Pulse Rate 59 L 61 Pulse Rate [Pulse Oximeter] 66 Respiratory Rate 16 16 16 Blood Pressure 90/58 L 117/66 Blood Pressure [Left Arm] 135/94 H Blood Pressure [Right Arm] Blood Pressure [Right Upper Arm] Pulse Oximetry 88 90 92 Oxygen Delivery Method Room Air Aerosol Mask Aerosol Mask Oxygen Flow Rate 6 6 02/14/25 15:55 02/14/25 16:00 02/14/25 16:05 Temperature Pulse Rate 64 63 62 Pulse Rate [Pulse Oximeter] Respiratory Rate 16 16 16 Blood Pressure 128/67 128/68 133/72 Blood Pressure [Left Arm] Blood Pressure [Right Arm] Blood Pressure [Right Upper Arm] Pulse Oximetry 91 90 90 Oxygen Delivery Method Aerosol Mask Aerosol Mask Oxygen Flow Rate 6 6 02/14/25 16:09 02/14/25 16:15 02/14/25 16:24 Temperature 98.5 F 98.4 F Pulse Rate 62 62 67 Pulse Rate [Pulse Oximeter] Respiratory Rate 16 16 16 Blood Pressure 125/73 140/76 H 129/73 Blood Pressure [Left Arm] Blood Pressure [Right Arm] Blood Pressure [Right Upper Arm] Pulse Oximetry 90 90 93 Oxygen Delivery Method Aerosol Mask Aerosol Mask Nasal Cannula Oxygen Flow Rate 6 6 3 02/14/25 16:30 02/14/25 16:45 02/14/25 17:09 Temperature 97.7 F 98.2 F 97.9 F Pulse Rate 63 61 62 Pulse Rate [Pulse Oximeter] Respiratory Rate 16 16 16 Blood Pressure 135/75 139/81 134/74 Blood Pressure [Left Arm] Blood Pressure [Right Arm] Blood Pressure [Right Upper Arm] Pulse Oximetry 93 91 90 Oxygen Delivery Method Nasal Cannula Nasal Cannula Nasal Cannula Oxygen Flow Rate 3 2.5 2.5 02/14/25 17:24 02/14/25 17:45 02/14/25 18:16 Temperature 97.4 F L 98.1 F 98.2 F Pulse Rate 63 65 64 Pulse Rate [Pulse Oximeter] Respiratory Rate 16 16 16 Blood Pressure 135/71 114/65 121/70 Blood Pressure [Left Arm] Blood Pressure [Right Arm] Blood Pressure [Right Upper Arm] Pulse Oximetry 87 L 89 89 Oxygen Delivery Method Nasal Cannula Nasal Cannula Nasal Cannula Oxygen Flow Rate 1.5 1.5 1.5 02/14/25 19:15 02/14/25 20:15 02/14/25 21:15 Temperature 97.8 F Pulse Rate 71 72 Pulse Rate [Pulse Oximeter] Respiratory Rate 18 16 Blood Pressure 118/79 123/71 120/74 Blood Pressure [Left Arm] Blood Pressure [Right Arm] Blood Pressure [Right Upper Arm] Pulse Oximetry 90 90 90 Oxygen Delivery Method Nasal Cannula Nasal Cannula Nasal Cannula Oxygen Flow Rate 2.0 2.0 2 02/14/25 22:15 02/14/25 22:15 02/14/25 23:34 Temperature 97.8 F 97.8 F 97.9 F Pulse Rate 84 Pulse Rate [Pulse Oximeter] 84 81 Respiratory Rate 18 18 20 Blood Pressure 125/75 Blood Pressure [Left Arm] 118/70 Blood Pressure [Right Arm] 125/75 Blood Pressure [Right Upper Arm] Pulse Oximetry 91 91 90 Oxygen Delivery Method Nasal Cannula Room Air Nasal Cannula Oxygen Flow Rate 2 2 02/15/25 00:12 02/15/25 03:01 Temperature 97.6 F Pulse Rate Pulse Rate [Pulse Oximeter] 78 Respiratory Rate 20 18 Blood Pressure Blood Pressure [Left Arm] Blood Pressure [Right Arm] 131/62 Blood Pressure [Right Upper Arm] Pulse Oximetry 90 91 Oxygen Delivery Method Nasal Cannula Room Air Oxygen Flow Rate 2 2 Assessment and Plan Assessment and plan (1) History of hip surgery: Problem details: right, 02/14/2025, Yasmany, IM rodding Status: Acute Assessment and Plan: Plan for discharge is to a senior living facility when they meets discharge criteria. DVT prophylaxis upon discharge Xarelto 10 mg daily for 35 days Remove dressing 10 days. Observe wound and phone Orthopedics with any questions or concerns Use Ice on operative hip unrestricted. Return to clinic in 4-6 weeks with surgeon Minimize narcotic use. Wean off and discontinue soon as possible. weightbear as tolerated right lower extremity. OT and PT at senior living facility daily
[2025-02-15] MEDS: RIVAROXABAN 10 MG TABLET PO (09:18)
[2025-02-15] MEDS: OXYCODONE 5 MG TABLET PO ×3 (09:18→17:57)
[2025-02-15] MEDS: SENNOSIDES 1 TAB TABLET 2 TAB PO ×2 (09:18→19:32)
--- NOTE | 2025-02-15 12:17 | CRLHL7_ITS ---
For Patients: As a result of the Cures Act, medical imaging exams and procedure reports are released immediately into your electronic medical record. You may view this report before your referring provider. If you have questions, please contact your health care provider. INDICATION: Trauma, not otherwise described. COMPARISON: None available. TECHNIQUE: Views: Three views of the left thumb. FINDINGS: Mineralization: Normal. Alignment: Normal. Bones and Joints: Nondisplaced radial styloid fracture demonstrated on image 1. There is a small linear subarticular lucency is noted in the radial aspect of the left 1st metacarpal head on image 3 which could be due to a nondisplaced fracture. Recommend correlation with focal point tenderness on exam. Soft Tissues: Mild soft tissue swelling is noted along the radial aspect of the 1st metacarpal extending to the 1st metacarpophalangeal joint. IMPRESSION: 1. Nondisplaced radial styloid fracture demonstrated on image 1. 2. There is a small linear subarticular lucency is noted in the radial aspect of the left 1st metacarpal head on image 3 which could be due to a nondisplaced fracture. Recommend correlation with focal point tenderness on exam. Dictated by Pratik Moreno MD @ 02/15/2025 1:02:30 PM (Electronically Signed)
--- NOTE | 2025-02-15 12:17 | CRLHL7_ITS ---
For Patients: As a result of the Cures Act, medical imaging exams and procedure reports are released immediately into your electronic medical record. You may view this report before your referring provider. If you have questions, please contact your health care provider. INDICATION: Trauma. COMPARISON: None available. TECHNIQUE: Views: 3 FINDINGS: Mineralization: Normal. Alignment: High-riding humeral head of undetermined chronicity consistent with rotator cuff arthropathy. Bones and Joints: No fracture is identified. The vertically oriented linear lucency superimposed upon the humeral head on image 2 is considered to be due to a combination of the superimposed posterior glenoid rim and the medial cortex of the greater tuberosity seen on face. Soft Tissues: No significant periarticular soft tissue findings. Incidental central right basilar opacity most likely representing subsegmental atelectasis. IMPRESSION: No acute traumatic injury is identified. Incidental findings as above. Dictated by Pratik Moreno MD @ 02/15/2025 1:05:03 PM (Electronically Signed)
--- NOTE | 2025-02-15 12:46 | P.IMPN_ITS ---
Assessment and Plan Assessment and plan (1) History of hip surgery: Problem comment: right, 02/14/2025, BAKARI Jade Status: Acute (2) Hip fracture: Problem comment: Right femoral neck fracture after accidental fall down 1 step onto concrete. Orthopedic consult with planned surgery later today Status: Acute (3) Imbalance: Problem comment: Chronic problem pre-existing this fall. Evaluate and treat. Consider assessing for neuropathy Status: Acute (4) Hallucinations: Problem comment: His daughter notes that he has episodes lasting up to 1/2 hour, often at night, where he is hallucinating that he is at work. 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 He is at risk for postoperative delirium Status: Acute (5) Stage 3b chronic kidney disease: Problem comment: Stable with creatinine at 1.4 and creatinine clearance of 37 Status: Acute (6) COPD (chronic obstructive pulmonary disease): Problem comment: Moderately severe. Postoperatively will need monitoring as he is at risk for respiratory compromise Status: Acute (7) Hypoxia: Problem comment: Mild postoperative hypoxia probably due to combination of underlying copd and CARO plus opioid medicines continue to monitor. Continue COPD treatments. Status: Acute (8) Discharge planning issues: Problem comment: Will need detention facility for rehab. Status: Acute (9) Driving safety issue: Problem comment: Patient continues to drive a car. 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 Total Time Spent Total Time Spent: Total time spent today is 40 minutes in coordination of care and discussing with patient, family and other providers ongoing management of medical problems in the context of hip surgery and discharge planning. Subjective Date Seen: 02/15/25 Interval history: Aldo Steele is a 85 year old male with COPD and diabetes mellitus admitted to the hospital after an accidental fall at home this morning. He was going out of his house, walking down the steps to feed his animals. It was still dark outside. He thinks he missed the last step and fell landing on his right hip. His hip landed on concrete in the rest of him landed in the grass. He does not think he had any other injury. He did not hit his head or lose consciousness. He had his phone with him and called for help. He reports otherwise feeling well prior to falling. He has not had recent illness. He has not had anything to eat since last night. He does take aspirin daily and has had his morning medications today. No anticoagulation. His daughter, Carleen, notes that he has had occasional problems with falling. Patient reports that when he was taking a shower and closes his eyes he feels like he is going to fall over. He has moderately severe COPD which he reports is well controlled on Advair inhaler. He has diabetes mellitus which he reports has been fairly well controlled on metformin. Hemoglobin A1c was 6.5 in August 2024 His daughter also notes that he has been having occasional episodes for he is hallucinating. She will hear him at night talking loudly. 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 Manipulating imaginary keys in his hands. Talking to other people who are not in the room. This can last up to a 1/2 hour. 02/15/2025: Patient reports significant right hip and thigh pain today. He is also reporting some right shoulder discomfort and left thumb discomfort that he thinks might have been injured in his fall as well. He is not complaining of dyspnea but he was placed on oxygen overnight because of decreased O2 sats. No cough or chest pain. Exam Narrative: Exam Narrative: He is alert and appears in no distress. Right shoulder is examined. Palpation over his shoulder is nontender. Is no bruising or swelling noted no erythema. He is unable to abduct or forward flex his shoulder above about 75?. Flexion extension strength is normal. No discomfort with strength testing. Palpation of the upper arm and elbow without discomfort. Motion in the elbow is without discomfort. Left thumb is tender on the ulnar side of the MCP joint there is some bruising and swelling there as well. No other bony tenderness. Respirations are clear to auscultation. He has fair air exchange all lung heller no marked wheezing. Cardiovascular: S1, S2, regular rate and rhythm. Abdomen is soft without tenderness or mass. Hip is without erythema or drainage. Distally he has intact pulses and sensation. Const: Vital Signs, click to edit/add: Vital Signs - 24 hr 02/14/25 15:45 02/14/25 15:50 02/14/25 15:55 Temperature 98.4 F Pulse Rate 59 L 61 64 Pulse Rate [Pulse Oximeter] Respiratory Rate 16 16 16 Blood Pressure 90/58 L 117/66 128/67 Blood Pressure [Le ft Arm] Blood Pressure [Ri ght Arm] Pulse Oximetry 90 92 91 Oxygen Delivery Me thod Aerosol Mask Aerosol Mask Aerosol Mask Oxygen Flow Rate 6 6 6 02/14/25 16:00 02/14/25 16:05 02/14/25 16:09 Temperature Pulse Rate 63 62 62 Pulse Rate [Pulse Oximeter] Respiratory Rate 16 16 16 Blood Pressure 128/68 133/72 125/73 Blood Pressure [Le ft Arm] Blood Pressure [Ri ght Arm] Pulse Oximetry 90 90 90 Oxygen Delivery Me thod Aerosol Mask Aerosol Mask Oxygen Flow Rate 6 6 02/14/25 16:15 02/14/25 16:24 02/14/25 16:30 Temperature 98.5 F 98.4 F 97.7 F Pulse Rate 62 67 63 Pulse Rate [Pulse Oximeter] Respiratory Rate 16 16 16 Blood Pressure 140/76 H 129/73 135/75 Blood Pressure [Le ft Arm] Blood Pressure [Ri ght Arm] Pulse Oximetry 90 93 93 Oxygen Delivery Me thod Aerosol Mask Nasal Cannula Nasal Cannula Oxygen Flow Rate 6 3 3 02/14/25 16:45 02/14/25 17:09 02/14/25 17:24 Temperature 98.2 F 97.9 F 97.4 F L Pulse Rate 61 62 63 Pulse Rate [Pulse Oximeter] Respiratory Rate 16 16 16 Blood Pressure 139/81 134/74 135/71 Blood Pressure [Le ft Arm] Blood Pressure [Ri ght Arm] Pulse Oximetry 91 90 87 L Oxygen Delivery Me thod Nasal Cannula Nasal Cannula Nasal Cannula Oxygen Flow Rate 2.5 2.5 1.5 02/14/25 17:45 02/14/25 18:16 02/14/25 19:15 Temperature 98.1 F 98.2 F 97.8 F Pulse Rate 65 64 71 Pulse Rate [Pulse Oximeter] Respiratory Rate 16 16 18 Blood Pressure 114/65 121/70 118/79 Blood Pressure [Le ft Arm] Blood Pressure [Ri ght Arm] Pulse Oximetry 89 89 90 Oxygen Delivery Me thod Nasal Cannula Nasal Cannula Nasal Cannula Oxygen Flow Rate 1.5 1.5 2.0 02/14/25 20:15 02/14/25 21:15 02/14/25 22:15 Temperature 97.8 F Pulse Rate 72 84 Pulse Rate [Pulse Oximeter] Respiratory Rate 16 18 Blood Pressure 123/71 120/74 125/75 Blood Pressure [Le ft Arm] Blood Pressure [Ri ght Arm] Pulse Oximetry 90 90 91 Oxygen Delivery Me thod Nasal Cannula Nasal Cannula Nasal Cannula Oxygen Flow Rate 2.0 2 2 02/14/25 22:15 02/14/25 23:34 02/15/25 00:12 Temperature 97.8 F 97.9 F Pulse Rate Pulse Rate [Pulse Oximeter] 84 81 Respiratory Rate 18 20 20 Blood Pressure Blood Pressure [Le ft Arm] 118/70 Blood Pressure [Ri ght Arm] 125/75 Pulse Oximetry 91 90 90 Oxygen Delivery Me thod Room Air Nasal Cannula Nasal Cannula Oxygen Flow Rate 2 2 02/15/25 03:01 02/15/25 07:00 02/15/25 07:00 Temperature 97.6 F 98.1 F Pulse Rate Pulse Rate [Pulse Oximeter] 78 79 Respiratory Rate 18 18 18 Blood Pressure Blood Pressure [Le ft Arm] 136/70 Blood Pressure [Ri ght Arm] 131/62 Pulse Oximetry 91 90 90 Oxygen Delivery Me thod Room Air Room Air Room Air Oxygen Flow Rate 2 1 1 02/15/25 11:00 Temperature 97.8 F Pulse Rate Pulse Rate [Pulse Oximeter] 78 Respiratory Rate 18 Blood Pressure Blood Pressure [Le ft Arm] 129/81 Blood Pressure [Ri ght Arm] Pulse Oximetry 90 Oxygen Delivery Me thod Room Air Oxygen Flow Rate 1 Documenting provider has reviewed patient's vital signs: yes Labs Labs: Laboratory Results - last 24 hr 02/14/25 02/14/25 02/14/25 08:10 12:47 22:35 WBC RBC Hgb Hct MCV MCH MCHC Plt Count Sodium Potassium BUN Creatinine Estimated Creat Clear Estimated GFR Vitamin B12 266 Urine Color Yellow Urine Appearance Slightly Cloudy A Urine pH 6.0 Ur Specific G[place]inn 1.025 Urine Protein 1+ A Urine Glucose (UA) Negative Urine Ketones Negative Urine Blood Negative Urine Nitrite Negative Urine Bilirubin Negative Urine Urobilinogen 0.2 Ur Leukocyte Esterase Negative Urine RBC 2-5 A Urine WBC 2-5 Ur Squamous Epith Cells Few Amorphous Sediment Few A Urine Bacteria Few A Urine Mucus Moderate A Lab Acknowledgement Test Added 02/15/25 06:41 WBC 14.27 H RBC 3.90 L Hgb 12.0 L Hct 37.3 MCV 96 MCH 31 MCHC 32 Plt Count 320 Sodium 138 Potassium 4.7 BUN 19 Creatinine 1.3 Estimated Creat Clear 39.55 Estimated GFR 54 Vitamin B12 Urine Color Urine Appearance Urine pH Ur Specific G[place]inn Urine Protein Urine Glucose (UA) Urine Ketones Urine Blood Urine Nitrite Urine Bilirubin Urine Urobilinogen Ur Leukocyte Esterase Urine RBC Urine WBC Ur Squamous Epith Cells Amorphous Sediment Urine Bacteria Urine Mucus Lab Acknowledgement
[2025-02-15] MEDS: WIXELA 1 EACH INH ×2 (12:58→19:37)
--- NOTE | 2025-02-15 14:02 | PC.SOCIAL ---
Discharge planning: Secure emailed referral packet to [facility] for evaluation for admit for short term rehab, at family request. hold worker to follow up as needed.
[2025-02-15] MEDS: TAMSULOSIN HCL 0.4 MG CAPSULE PO (15:16)
--- NOTE | 2025-02-15 18:34 | PC.NURSE ---
End of shift [id number]: Pt AxOx4, pleasant, and cooperative with cares. Pt was unable to rate pain to the R hip at times. Graduate Recruiter assessed nonverbal cues and used therapeutic communication to meet Pts needs. Pain was managed with reposition, active ice, PRN/schedule medication. Pt was up in chair for breakfast and dinner, refusing lunch. Heavy A2 GB W. Pt is hesitant to bear weight on the RLE, encouragement and education given. Pt continent of the bladder, using urinal. IV was removed by MD Lito okayed to not inserting a new IV. Pt is up in chair eating dinner with call light in reach. ?
[2025-02-15] MEDS: DIPHENOXYLATE-ATROP 2.5-0.025 TABLET 1 TAB PO (19:33)
[2025-02-16] VITALS (7 sets, daily range): BP systolic 102–154; BP diastolic 60–80; PULSE 68–97; RESP 16–20; TEMP 36.6–37; O2SAT 90–94
[2025-02-16] MEDS: ACETAMINOPHEN 325 MG TABLET 650 MG PO ×3 (06:21→18:09)
[2025-02-16 06:38] LABS: Hematocrit 37.2 % (37.0-53.0); Hemoglobin* 11.9 gm/dL (13.5-17.5); Mean Corpuscular HGB Conc 32 gm/dL (32-36); Mean Corpuscular Hemoglobin 30 pg (26-34); Mean Corpuscular Volume 95 fL (80-100); Platelet Count* 301 K/uL (140-440); Red Blood Count 3.91 m/uL (4.30-5.90); White Blood Count* 10.77 K/uL (4.50-11.00)
[2025-02-16 06:42] LABS: Slide Review Reflex No
--- NOTE | 2025-02-16 06:43 | PC.NURSE ---
End of shift note: VS WNL. Denies pain at rest. On 2 L O2 NC with sats above 90%. Ambulates 2 assist, CARY W. Trimmer Sawyer encouraged pt to continue to drink water. CMS intact, dressing C/D/I. Intermittent ice too site.
[2025-02-16 06:57] LABS: Sodium* 138 mmol/L (135-149)
[2025-02-16 07:00] LABS: Blood Urea Nitrogen* 19 mg/dL (7-30); Creatinine* 1.3 mg/dL (0.5-1.5); Est. Creatinine Clearance* 39.55; Estimated Glomerular Filt Rate 54 ml/min
[2025-02-16] MEDS: OXYCODONE 5 MG TABLET PO (08:16)
[2025-02-16] MEDS: METFORMIN ER 500 MG PO (09:08)
[2025-02-16] MEDS: AMLODIPINE 5 MG TABLET PO (09:08)
[2025-02-16] MEDS: ESCITALOPRAM 10 MG TABLET 20 MG PO (09:08)
[2025-02-16] MEDS: WIXELA 1 EACH INH ×2 (09:09→20:15)
[2025-02-16] MEDS: RIVAROXABAN 10 MG TABLET PO (09:09)
[2025-02-16] MEDS: METOPROLOL SUCCINATE (XL) 100 MG TAB PO (09:09)
[2025-02-16] MEDS: TAMSULOSIN HCL 0.4 MG CAPSULE PO (09:09)
[2025-02-16] MEDS: SENNOSIDES 1 TAB TABLET 2 TAB PO (09:16)
--- NOTE | 2025-02-16 12:50 | P.ORPN_ITS ---
Subjective Subjective Time Seen by Provider: 12:50 Date Seen: 02/16/25 Principal diagnosis: Status post right hip IM rodding, left thumb collateral ligament injury Interval history: Al is comfortable at rest. He has a thumb spica splint on the left upper extremity. He has been ambulating only a couple steps using a platform walker. Ortho Exam Narrative Exam Narrative: Alert . Patient is in no acute distress. Converses without labored breathing. Hearing is grossly intact. Ambulates with a platform walker. Weightbearing as tolerated right lower extremity Examination of the right hip shows the dressing is intact. Mild soft tissue edema. No erythema or warmth or sign of infection. Weak quads due to pain. Able to dorsiflex and plantar flex the right ankle. Calves are soft and nontender. CMS intact right lower extremity. Examination of left upper extremity shows ecchymosis about the entire thumb. Mild edema in this area. Exquisitely tender over the MP joint. Nontender over the distal phalanx or proximal phalanx Nontender over the radius or ulna. Able to flex and extend the left wrist easily without pain. CMS intact left upper extremity. Pain with range of motion of the thumb. Collateral Laxity through the MP joint in comparison to the right Examination of the right shoulder shows no erythema or warmth or sign of infection. Nontender to palpation about the right shoulder. He is unable to forward flex the shoulder. He must use his other hand to lift up his right arm. X-rays of the left thumb are taken 02/15/2025. These show 1. Nondisplaced radial styloid fracture demonstrated on image 1. 2. There is a small linear subarticular lucency is noted in the radial aspect of the left 1st metacarpal head on image 3 which could be due to a nondisplaced fracture. Recommend correlation with focal point tenderness on exam. X-rays of the right shoulder are taken 02-15-25 three views. These show Alignment: High-riding humeral head of undetermined chronicity consistent with rotator cuff arthropathy. Bones and Joints: No fracture is identified. The vertically oriented linear lucency superimposed upon the humeral head on image 2 is considered to be due to a combination of the superimposed posterior glenoid rim and the medial cortex of the greater tuberosity seen on face. Soft Tissues: No significant periarticular soft tissue findings. Incidental central right basilar opacity most likely representing subsegmental atelectasis. IMPRESSION: No acute traumatic injury is identified. Incidental findings as above. 02/14/2025 right hip x-ray shows Internal fixation of a right proximal femoral fracture. Hardware intact and appropriately seated. Const Vital Signs, click to edit/add: Vital Signs - 24 hr 02/15/25 15:00 02/15/25 15:00 02/15/25 19:00 Temperature 98.5 F 98.6 F Pulse Rate [Pulse Oximeter] 86 77 Respiratory Rate 16 16 16 Blood Pressure [Left Arm] 118/70 107/61 Pulse Oximetry 89 89 92 Oxygen Delivery Method Nasal Cannula Nasal Cannula Nasal Cannula Oxygen Flow Rate 2 2 2 02/15/25 23:00 02/15/25 23:00 02/15/25 23:00 Temperature 98.7 F Pulse Rate [Pulse Oximeter] 76 77 Respiratory Rate 16 16 16 Blood Pressure [Left Arm] 118/62 Pulse Oximetry 90 92 Oxygen Delivery Method Nasal Cannula Nasal Cannula Oxygen Flow Rate 2 2 02/16/25 02:57 02/16/25 07:00 02/16/25 07:00 Temperature 98.4 F 98.6 F Pulse Rate [Pulse Oximeter] 75 83 Respiratory Rate 16 16 16 Blood Pressure [Left Arm] 154/74 H 139/80 Pulse Oximetry 90 92 92 Oxygen Delivery Method Room Air Nasal Cannula Nasal Cannula Oxygen Flow Rate 1 1 02/16/25 11:00 Temperature 98.5 F Pulse Rate [Pulse Oximeter] 97 Respiratory Rate 16 Blood Pressure [Left Arm] 102/74 Pulse Oximetry 90 Oxygen Delivery Method Room Air Oxygen Flow Rate Documenting provider has reviewed patient's vital signs: yes Assessment and Plan Assessment and plan (1) History of hip surgery: Problem details: right, 02/14/2025, Yamsany, IM rodding Status: Acute (2) Sprain of ulnar collateral ligament of metacarpophalangeal (MCP) joint of left thumb: Status: Acute Assessment and Plan: Plan for discharge is to group home facility when they meets discharge criteria and when group home site is available. Left upper extremity x-rays show a small linear subarticular lucency in the radial aspect of the left 1st metacarpal head which could be due to nondisplaced fracture. The ulnar collateral ligament does show lucency consistent with collateral ligament sprain. Platform walker with platform on left currently. Patient requests platform on the right as well. I spoke with therapy. They will work with him and see which platforms work best for him. Thumb spica brace is placed onto his left upper extremity earlier today. He does not like it. Thumb spica splint for 4-6 weeks, however he can take it off for hygiene and range of motion of the wrist daily. He likely has chronic rotator cuff tear in the right. Activity as tolerated both shoulders DVT prophylaxis upon discharge Xarelto 10 mg daily for 35 days Observe wound and phone Orthopedics with any questions or concerns. dressing for 10 days post op. Dressing is waterproof. Use Ice on operative hip unrestricted. Return to clinic in 4 weeks with surgeon Minimize narcotic use. Wean off and discontinue soon as possible. Weightbear as tolerated right lower extremity
--- NOTE | 2025-02-16 13:16 | PC.SOCIAL ---
Discharge planning: [facility] has accepted pt for admit tomorrow 02/17/25 to a private room with shared bathroom for admit before 2:00pm. Called dtsudha Durant, who is aware and agrees with this plan. Dtr is requesting transport by ambulance which she is hoping is covered by insurance. picking table worker to follow up as needed.
--- NOTE | 2025-02-16 15:20 | PM.IMPN1 ---
Assessment and Plan Assessment and plan (1) History of hip surgery: Problem comment: right, 02/14/2025, Yasmany, BAKARI rodding Status: Acute (2) Hip fracture: Problem comment: Right femoral neck fracture after accidental fall down 1 step onto concrete. Orthopedic consult with planned surgery later today Status: Acute (3) Sprain of ulnar collateral ligament of metacarpophalangeal (MCP) joint of left thumb: Problem comment: Possibly associated with an avulsion fracture at the 1st MTP joint Status: Acute (4) Hypoxia: Problem comment: Mild postoperative hypoxia probably due to combination of underlying copd and CARO plus opioid medicines continue to monitor. Continue COPD treatments. Improving Status: Acute (5) Discharge planning issues: Problem comment: Will need retirement facility for rehab. Status: Acute (6) Driving safety issue: Problem comment: Patient continues to drive a car. Recommend no driving until he has recovered from his hip fracture and surgery and then stake driver safety evaluation after that Status: Acute (7) Imbalance: Problem comment: Chronic problem pre-existing this fall. Evaluate and treat. Consider assessing for neuropathy. Vitamin B12 level borderline low at 266 ([phone]) Status: Acute (8) Hallucinations: Problem comment: His daughter notes that he has episodes lasting up to 1/2 hour, often at night, where he is hallucinating that he is at work. 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 He is at risk for postoperative delirium Status: Acute (9) COPD (chronic obstructive pulmonary disease): Problem comment: Moderately severe. Postoperatively will need monitoring as he is at risk for respiratory compromise. Stable Status: Acute (10) BPH (benign prostatic hyperplasia): Problem comment: At risk for urinary retention Status: Acute (11) Stage 3b chronic kidney disease: Problem comment: Stable with creatinine at 1.4 and creatinine clearance of 37 Status: Acute Plan Continue in hospital for management of medical problems, rehabilitation, pain control pending safe discharge plan for ongoing rehab. Total Time Spent Total Time Spent: Total time spent today is 45 minutes in coordination of care, discussing with patient and other providers ongoing management of hip, shoulder, hand injuries and multiple above medical problems Subjective Date Seen: 02/16/25 Interval history: Aldo Steele is a 85 year old male with COPD and diabetes mellitus admitted to the hospital after an accidental fall at home this morning. He was going out of his house, walking down the steps to feed his animals. It was still dark outside. He thinks he missed the last step and fell landing on his right hip. His hip landed on concrete in the rest of him landed in the grass. He does not think he had any other injury. He did not hit his head or lose consciousness. He had his phone with him and called for help. He reports otherwise feeling well prior to falling. He has not had recent illness. He has not had anything to eat since last night. He does take aspirin daily and has had his morning medications today. No anticoagulation. His daughter, Carleen, notes that he has had occasional problems with falling. Patient reports that when he was taking a shower and closes his eyes he feels like he is going to fall over. He has moderately severe COPD which he reports is well controlled on Advair inhaler. He has diabetes mellitus which he reports has been fairly well controlled on metformin. Hemoglobin A1c was 6.5 in August 2024 His daughter also notes that he has been having occasional episodes for he is hallucinating. She will hear him at night talking loudly. 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 Manipulating imaginary keys in his hands. Talking to other people who are not in the room. This can last up to a 1/2 hour. 02/15/2025: Patient reports significant right hip and thigh pain today. He is also reporting some right shoulder discomfort and left thumb discomfort that he thinks might have been injured in his fall as well. He is not complaining of dyspnea but he was placed on oxygen overnight because of decreased O2 sats. No cough or chest pain. 02/16/2025: Patient reports moving a little better today but still says he can not walk very well. Radiographs of his right shoulder are consistent with an old right rotator tender cuff tear without a new bony injury or dislocation. Left thumb has a nondisplaced fracture of the 1st metacarpal head, the area of tenderness, likely representing an avulsion fracture. Thumb spica splint is placed. Radial styloid fracture noted but not tender, likely old Exam Narrative: Exam Narrative: He is alert appears in no distress. Respirations are clear to auscultation. Cardiovascular: S1, S2, regular rate and rhythm. No murmur gallop or rub. Abdomen: Bowel sounds active abdomen is soft without tenderness. Right upper extremity with still limited range of motion and discomfort with attempts at abduction. Left thumb with bruising and swelling at the base and tenderness over the ulnar aspect of the 1st MTP joint. Const: Vital Signs, click to edit/add: Vital Signs - 24 hr 02/15/25 19:00 02/15/25 23:00 02/15/25 23:00 Temperature 98.6 F Pulse Rate [Pulse Oximeter] 77 76 Respiratory Rate 16 16 16 Blood Pressure [Le ft Arm] 107/61 Pulse Oximetry 92 90 Oxygen Delivery Me thod Nasal Cannula Nasal Cannula Oxygen Flow Rate 2 2 02/15/25 23:00 02/16/25 02:57 02/16/25 07:00 Temperature 98.7 F 98.4 F 98.6 F Pulse Rate [Pulse Oximeter] 77 75 83 Respiratory Rate 16 16 16 Blood Pressure [Le ft Arm] 118/62 154/74 H 139/80 Pulse Oximetry 92 90 92 Oxygen Delivery Me thod Nasal Cannula Room Air Nasal Cannula Oxygen Flow Rate 2 1 02/16/25 07:00 02/16/25 11:00 Temperature 98.5 F Pulse Rate [Pulse Oximeter] 97 Respiratory Rate 16 16 Blood Pressure [Le ft Arm] 102/74 Pulse Oximetry 92 90 Oxygen Delivery Me thod Nasal Cannula Room Air Oxygen Flow Rate 1 Documenting provider has reviewed patient's vital signs: yes Labs Labs: Laboratory Results - last 24 hr 02/16/25 06:12 WBC 10.77 RBC 3.91 L Hgb 11.9 L Hct 37.2 MCV 95 MCH 30 MCHC 32 Plt Count 301 Sodium 138 Potassium 4.0 BUN 19 Creatinine 1.3 Estimated Creat Clear 39.55 Estimated GFR 54
--- NOTE | 2025-02-16 18:36 | PC.NURSE ---
Addendum entered by Charito Hernandez RN 02/16/25 19:10: Pt tolerating RA for majority of the day when up in chair and awake. 1-2 L NC needed during napping in bed. Original Note: End of shift [id number]: Pt AxOx4, pleasant, and cooperative with cares. Assessed verbal and nonverbal ques of pain to the R hip with activity. Pain was managed with reposition, active ice, PRN/schedule medication. Pt was up in chair for meals, refusing dinner this evening. Pt stated I am not hungry and I want to go to bed now. Heavy A2 GB W. Pt is hesitant to bear weight on the RLE, encouragement and education given. Pt had 3 BMs today, continent/incontinent of the bowels. Pt is resting in bed watching television with call light in reach.
[2025-02-16] MEDS: DIPHENOXYLATE-ATROP 2.5-0.025 TABLET 1 TAB PO (20:15)
[2025-02-17] MEDS: ACETAMINOPHEN 325 MG TABLET 650 MG PO ×2 (00:47→05:43)
[2025-02-17] MEDS: OXYCODONE 5 MG TABLET PO (00:48)
[2025-02-17 00:56] VITALS: BP 133/109; PULSE 70; RESP 22; TEMP 37.2; O2SAT 91
[2025-02-17 05:45] VITALS: BP 135/75
--- NOTE | 2025-02-17 05:52 | PC.NURSE ---
[id number]: Patient pleasant and cooperative. Heavy A2/walker/GB to BS. Patient hesitant to put weight on R. leg. Education provided on risks and benefits of needing to bear weight on affected leg. Pain managed with PRN medications and active ice. Dressing to R.hip C/D/I. Non-emergent EMS to transport @1000 to [facility].
[2025-02-17 06:40] LABS: Hemoglobin* 11.1 gm/dL (13.5-17.5); Mean Corpuscular HGB Conc 33 gm/dL (32-36); Mean Corpuscular Hemoglobin 31 pg (26-34); Mean Corpuscular Volume 94 fL (80-100); Platelet Count* 304 K/uL (140-440); Red Blood Count 3.62 m/uL (4.30-5.90); White Blood Count* 10.43 K/uL (4.50-11.00)
[2025-02-17 06:41] LABS: Slide Review Reflex No
[2025-02-17 06:47] LABS: Potassium* 3.8 mmol/L (3.6-5.1); Sodium* 136 mmol/L (135-149)
[2025-02-17 06:50] LABS: Blood Urea Nitrogen* 19 mg/dL (7-30); Creatinine* 1.2 mg/dL (0.5-1.5); Est. Creatinine Clearance* 42.84; Estimated Glomerular Filt Rate 60 ml/min
[2025-02-17 07:37] VITALS: BP 152/76; PULSE 69; RESP 18; TEMP 36.6; O2SAT 93
[2025-02-17] MEDS: METOPROLOL SUCCINATE (XL) 100 MG TAB PO (08:11)
[2025-02-17] MEDS: AMLODIPINE 5 MG TABLET PO (08:11)
[2025-02-17] MEDS: RIVAROXABAN 10 MG TABLET PO (08:11)
[2025-02-17] MEDS: ESCITALOPRAM 10 MG TABLET 20 MG PO (08:12)
[2025-02-17] MEDS: WIXELA 1 EACH INH (08:12)
[2025-02-17] MEDS: DIPHENOXYLATE-ATROP 2.5-0.025 TABLET 2 TAB PO (08:12)
[2025-02-17] MEDS: TAMSULOSIN HCL 0.4 MG CAPSULE PO (08:12)
[2025-02-17] MEDS: METFORMIN ER 500 MG PO (08:13)
--- NOTE | 2025-02-17 11:05 | PC.NURSE ---
Patient discharged to [facility]. [id number] report given to Elise at [facility].
--- NOTE | 2025-02-17 11:33 | P.DS_ITS ---
DS: Providers Provider Date Seen: 02/17/25 Date of admission: 02/14/25 12:19 Primary care physician: Saulo Melendez MD Admitting Clinician: Olman Martinez MD Attending Physician on discharge: Olman Martinez MD Date of Discharge: 02/17/25 DS: Diagnosis Discharge Diagnosis (1) History of hip surgery: Status: Acute Problem details: right, 02/14/2025, Yasmany, BAKARI lanier (2) Hip fracture: Status: Acute Problem details: Right femoral neck fracture after accidental fall down 1 step onto concrete. (3) Sprain of ulnar collateral ligament of metacarpophalangeal (MCP) joint of left thumb: Status: Acute Problem details: Possibly associated with an avulsion fracture at the 1st MTP joint verses tear of ulnar collateral ligament. Thumb spica splint pending outpatient orthopedic follow-up. (4) Hypoxia: Status: Acute Problem details: Mild postoperative hypoxia probably due to combination of underlying copd and untreated CARO plus opioid medicines continue to monitor. Continue COPD treatments. Improving. Normal oxygen sats during the day but would occasionally desat into the upper 80s at night (5) Discharge planning issues: Status: Acute Problem details: Will need shelter facility for rehab. (6) Driving safety issue: Status: Acute Problem details: Patient continues to drive a car. Recommend no driving until he has recovered from his hip fracture and surgery and then outpatient [employer] flatbed driver safety evaluation. (7) Imbalance: Status: Acute Problem details: Chronic problem pre-existing this fall. Evaluate and treat. He has poor proprioception in his feet. Vitamin B12 level borderline low at 266 ([phone]). start B12 supplement (8) Impaired proprioception: Status: Acute Problem details: Affecting both feet and likely contributing to his balance problems. He reports poor balance when his eyes are closed (9) Hallucinations: Status: Acute Problem details: His daughter notes that he has episodes lasting up to 1/2 hour, often at night, where he is hallucinating that he is at work. 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 No problems with postoperative delirium or hallucinations (10) COPD (chronic obstructive pulmonary disease): Status: Acute Problem details: Moderately severe. Postoperatively will need monitoring as he is at risk for respiratory compromise. Stable during hospital stay (11) BPH (benign prostatic hyperplasia): Status: Acute Problem details: At risk for urinary retention (12) Stage 3b chronic kidney disease: Status: Acute Problem details: Stable with creatinine at 1.4 and creatinine clearance of 37 (13) Right rotator cuff tear: Status: Acute Problem details: Recurrent injury of right shoulder with fall February 2025. Evidence of old right rotator cuff tear from remote history of a fall. Poor range of motion. DS: Summary Hospital Course Hospital Course: Aldo Steele is a 85 year old male with COPD and diabetes mellitus admitted to the hospital after an accidental fall at home this morning. He was going out of his house, walking down the steps to feed his animals. It was still dark outside. He thinks he missed the last step and fell landing on his right hip. His hip landed on concrete in the rest of him landed in the grass. He does not think he had any other injury. He did not hit his head or lose c onsciousness. He had his phone with him and called for help. He reports otherwise feeling well prior to falling. He has not had recent illness. He has not had anything to eat since last night. He does take aspirin daily and has had his morning medications today. No anticoagulation. His daughter, Carleen, notes that he has had occasional problems with falling. Patient reports that when he was taking a shower and closes his eyes he feels like he is going to fall over. He has moderately severe COPD which he reports is well controlled on Advair inhaler. He has diabetes mellitus which he reports has been fairly well controlled on metformin. Hemoglobin A1c was 6.5 in August 2024 His daughter also notes that he has been having occasional episodes for he is hallucinating. She will hear him at night talking loudly. 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 Manipulating imaginary keys in his hands. Talking to other people who are not in the room. This can last up to a 1/2 hour. 02/15/2025: Patient reports significant right hip and thigh pain today. He is also reporting some right shoulder discomfort and left thumb discomfort that he thinks might have been injured in his fall as well. He is not complaining of dyspnea but he was placed on oxygen overnight because of decreased O2 sats. No cough or chest pain. 02/16/2025: Patient reports moving a little better today but still says he can not walk very well. Radiographs of his right shoulder are consistent with an old right rotator tender cuff tear without a new bony injury or dislocation. Left thumb has a nondisplaced fracture of the 1st metacarpal head, the area of tenderness, likely representing an avulsion fracture. Thumb spica splint is placed. Radial styloid fracture noted but not tender, likely old. Status at Discharge Functional status at discharge: uses cane/walker Overall status at discharge: patient is progressing back to baseline Time Spent with Patient Time attestation: Total time spent providing and/or coordinating discharge services:35 mins Time spent: Greater than 30 minutes Exam Narrative: Exam Narrative: He is alert and appears in no distress. O2 sat is 92-93% on room air while awake. Breathing is unlabored. Breath sounds are diminished without wheezing. Cardiovascular: S1, S2, regular rate and rhythm. Abdomen is soft without tenderness. Diminished proprioception in both feet likely contributing to his imbalance, especially with his eyes closed. Const: Vital Signs, click to edit/add: Vital Signs - 24 hr 02/16/25 15:00 02/16/25 15:00 02/16/25 20:06 Temperature 98.1 F 97.9 F Pulse Rate [Pulse Oximeter] 69 68 Respiratory Rate 18 18 20 Blood Pressure [Le ft Arm] 117/60 141/80 H Blood Pressure [Ri ght Arm] Pulse Oximetry 93 93 94 Oxygen Delivery Me thod Room Air Room Air Nasal Cannula Oxygen Flow Rate 1.0 02/16/25 23:00 02/16/25 23:39 02/17/25 00:56 Temperature 99.0 F Pulse Rate [Pulse Oximeter] 70 Respiratory Rate 20 20 22 Blood Pressure [Le ft Arm] 133/109 H Blood Pressure [Ri ght Arm] Pulse Oximetry 94 91 Oxygen Delivery Me thod Nasal Cannula Nasal Cannula Oxygen Flow Rate 1.0 1.0 02/17/25 05:45 02/17/25 07:37 02/17/25 07:37 Temperature 97.9 F Pulse Rate [Pulse Oximeter] 69 Respiratory Rate 18 18 Blood Pressure [Le ft Arm] 135/75 Blood Pressure [Ri ght Arm] 152/76 H Pulse Oximetry 93 93 Oxygen Delivery Me thod Room Air Room Air Oxygen Flow Rate Documenting provider has reviewed patient's vital signs: yes DS: Data Data Completed and Pending Labs on day of discharge: Labs from last 24 hours 02/17/25 06:05 WBC 10.43 RBC 3.62 L Hgb 11.1 L Hct 34.0 L MCV 94 MCH 31 MCHC 33 Plt Count 304 Sodium 136 Potassium 3.8 BUN 19 Creatinine 1.2 Estimated Creat Clear 42.84 Estimated GFR 60 Imaging Chest x-ray: Radiologist's impression: INDICATION: Fall. TECHNIQUE: Chest 1 views. COMPARISON: X-ray chest June 2022. FINDINGS/IMPRESSION: Patient is rotated to the right. No focal pulmonary infiltrate, significant effusion or pneumothorax. Redemonstration of left basilar atelectasis. Cardiac size is within normal limit without pulmonary edema. Right hip x-ray: Radiologist's impression: INDICATION: Fall, right hip pain COMPARISON: None. TECHNIQUE: AP pelvis, AP right hip, cross-table lateral right hip. FINDINGS: There is an acute fracture across the base of the right femoral neck. The fracture is mildly impacted and there is almost 90 degrees of angulation at the femoral neck shaft angle. Normal hip joint alignment. Joint spaces are normal. No subchondral remodeling at the hip joint. No destructive focal bone lesions. Atherosclerotic vascular calcifications. IMPRESSION: Angulated mildly impacted right femoral neck fracture. Right shoulder x-ray: Radiologist's impression: INDICATION: Trauma. COMPARISON: None available. TECHNIQUE: Views: 3 FINDINGS: Mineralization: Normal. Alignment: High-riding humeral head of undetermined chronicity consistent with rotator cuff arthropathy. Bones and Joints: No fracture is identified. The vertically oriented linear lucency superimposed upon the humeral head on image 2 is considered to be due to a combination of the superimposed posterior glenoid rim and the medial cortex of the greater tuberosity seen on face. Soft Tissues: No significant periarticular soft tissue findings. Incidental central right basilar opacity most likely representing subsegmental atelectasis. IMPRESSION: No acute traumatic injury is identified. Incidental findings as above Left thumb x-ray: Radiologist's impression: INDICATION: Trauma, not otherwise described. COMPARISON: None available. TECHNIQUE: Views: Three views of the left thumb. FINDINGS: Mineralization: Normal. Alignment: Normal. Bones and Joints: Nondisplaced radial styloid fracture demonstrated on image 1. There is a small linear subarticular lucency is noted in the radial aspect of the left 1st metacarpal head on image 3 which could be due to a nondisplaced fracture. Recommend correlation with focal point tenderness on exam. Soft Tissues: Mild soft tissue swelling is noted along the radial aspect of the 1st metacarpal extending to the 1st metacarpophalangeal joint. IMPRESSION: 1. Nondisplaced radial styloid fracture demonstrated on image 1. 2. There is a small linear subarticular lucency is noted in the radial aspect of the left 1st metacarpal head on image 3 which could be due to a nondisplaced fracture. Recommend correlation with focal point tenderness on exam. Discharge Plan Discharge Disposition: er [facility] Date of Admission: 02/14/25 12:19 Attending Provider on Discharge: Olman Martinez Primary Care Provider: Saulo Melendez Condition: Unchanged Anticipated Discharge Date/Time: 02/17/25 10:00 Discharge Medications: New acetaminophen 650 mg tablet extended release 650 mg PO Q6H PRNQty: 100 0RF Xarelto 10 mg tablet 10 mg PO DAILY Qty: 32 0RF Rx Instructions: for 32 days oxycodone 5 mg Tablet 2.5 - 5 mg PO Q4-6H MDD 6 tabs per day PRN (Reason: Pain) Qty: 42 0RF Rx Instructions: Minimize. Discontinue as soon as possible diphenoxylate-atropine 2.5-0.025 mg Tablet 1 tab PO HS PRN (Reason: Diarrhea) Qty: 30 0RF cyanocobalamin (vitamin B-12) [Vitamin B-12] 1,000 mcg tablet 1,000 mcg PO DAILY Qty: 30 0RF Continued multivitamin [Daily Multi-Vitamin] Tablet 1 tab PO QAM fluticasone propion-salmeterol [Advair Diskus] 250-50 mcg/dose blister with device 1 inh inhalation BID Qty: 180 3RF ipratropium-albuterol 0.5 mg-3 mg(2.5 mg base)/3 mL solution for nebulization 3 ml inhalation Q4H PRN (Reason: wheezing) diphenhydramine HCl [Aler-Cap] 25 mg capsule 25 mg PO QHS Nutrisource Fiber Packet 1 tbsp PO DAILY PRN Rx Instructions: mix into at least 4 oz water or juice before administering metoprolol succinate 100 mg tablet extended release 24 hr 100 mg PO DAILY diphenoxylate-atropine [Lomotil] 2.5-0.025 mg tablet 1 - 2 tab PO BID Rx Instructions: 2 AM, 1 HS tamsulosin 0.4 mg capsule 0.4 mg PO DAILY metformin 500 mg tablet extended release 24 hr 500 mg PO DAILY escitalopram oxalate 20 mg tablet 20 mg PO DAILY amlodipine 5 mg tablet 5 mg PO DAILY Qty: 90 0RF Held aspirin 81 mg tablet,delayed release (DR/EC) 81 mg PO DAILY Hold Instructions: Resume on 03/22/25. Discharge Orders: Discharge Order (Routine); Ordered 02/17/25 Ordered By: Olman Martinez Additional Instructions: Staff please make appointment with Dr. Jade in 4 weeks, [facility] for left thumb and rt hip. Activity Detail: Weightbear as tolerated right lower extremity Keep dressing on for 10 days. Dressing is waterproof. May shower. OT and PT daily at [facility]. Ice and elevate operative extremity without restriction. Swelling and bruising will worsen within the first week. When swelling occurs, elevate the extremity above heart level several times a day and gently massage/pull soft tissue swelling toward hip. This allows gravity to assist in eliminating the swelling/edema. Wear compression stockings/delmis bandages as needed for swelling. If you drive, Do not drive while taking narcotic pain medication. Do not drink alcohol while taking narcotic pain medication. May drive when safe to do so and have full function of the extremities, this may take 6 weeks or more. Notify Orthopedics with any questions or concerns. ([phone]) Keep thumb spica splint on left upper extremity except for hygiene and range of motion of wrist daily. Discharge Diet: Regular Follow Up Appointments: Saulo Melendez MD [Primary Care Provider[facility] - [facility] Discharge Potential: Good Length of Stay: <30 days Can use facility standing orders?: Yes Code Status: DNR TEDs: Bilateral Knee Rehab Potential: Good Therapy: Physical Therapy and Occupational Therapy Therapy Orders: Evaluate and Treat Therapy Orders Additional Information: OT [facility] PT [facility] at [facility] Oxygen: No
--- NOTE | 2025-02-17 11:56 | PC.SOCIAL ---
Discharge planning: [employer] worker secure emailed an [place] long-term care application to the financial assistance team at [facility] that was completed by the pt and his daughter, Carleen, per their request. Social work to follow-up as needed.
== END 2025-02-17 11:04 | DRG 481 ==
LOC: ED 09:32 → MEDSURG 02-15 09:15
PROVIDERS: Orthopaedic Surgery; Admitting Provider Family Medicine; Emergency Provider Family Medicine; PCP Family Medicine; Visit Provider Family Medicine
PROC: 0QS606Z Reposition Right Upper Femur with Intramedullary Internal Fixation Device, Open Approach (ICD-10-PCS; CPT 27245; principal; 2025-02-14 12:30)
DX: S72.141A Displaced intertrochanteric fracture of right femur, initial encounter for closed fracture (principal); R44.2 Other hallucinations; G89.18 Other acute postprocedural pain; S63.642A Sprain of metacarpophalangeal joint of left thumb, initial encounter; W10.8XXA Fall (on) (from) other stairs and steps, initial encounter; Y92.008 Other place in unspecified non-institutional (private) residence as the place of occurrence of the external cause; R26.89 Other abnormalities of gait and mobility; Z91.81 History of falling; R09.02 Hypoxemia; J44.9 Chronic obstructive pulmonary disease, unspecified; K52.9 Noninfective gastroenteritis and colitis, unspecified; G47.33 Obstructive sleep apnea (adult) (pediatric); Z99.89 Dependence on other enabling machines and devices; I12.9 Hypertensive chronic kidney disease with stage 1 through stage 4 chronic kidney disease, or unspecified chronic kidney disease; E11.22 Type 2 diabetes mellitus with diabetic chronic kidney disease; N18.32 Chronic kidney disease, stage 3b; Z79.84 Long term (current) use of oral hypoglycemic drugs; I25.10 Atherosclerotic heart disease of native coronary artery without angina pectoris; E78.2 Mixed hyperlipidemia; Z79.82 Long term (current) use of aspirin; Z85.038 Personal history of other malignant neoplasm of large intestine; N40.1 Benign prostatic hyperplasia with lower urinary tract symptoms; R33.8 Other retention of urine; R44.8 Other symptoms and signs involving general sensations and perceptions
CPT/HCPCS: 01210; 01230; 36415; 51798; 64447; 71045; 73030; 73140; 73502; 73551; 76942; 80048; 81001; 81003; 82565; 82607; 84132; 84295; 84520; 85025; 85027; 87086; 93005; 97110; 97116; 97161; 97165; 97530; 97535; 99100; 99140; 99284; 99285; A9270; C1713; J0690; J1100; J2405; J2704; J3010; J3490; J7030; J7120

== ENCOUNTER 2025-02-17 10:55 | Outpatient (CLI) | payer MEDICARE, OTHER, SELFPAY | END 2025-02-17 10:56 | disposition home or self-care (01) | LOC: AMB 02-20 08:44 | PROVIDERS: PCP Family Medicine; Visit Provider Family Medicine | DX: M25.561 Pain in right knee (principal); Z99.3 Dependence on wheelchair; Z98.890 Other specified postprocedural states | CPT/HCPCS: A0425; A0428 ==

== ENCOUNTER 2025-07-20 15:36 | Outpatient (REF) | payer BC, MEDICARE, SELFPAY ==
[2025-07-20 16:10] LABS: Appearance Urine Clear (Clear)
== END 2025-07-20 15:37 | disposition home or self-care (01) ==
LOC: NPINS 15:36
PROVIDERS: PCP Family Medicine; Visit Provider Nurse Practitioner Gerontology
DX: Z00.00 Encounter for general adult medical examination without abnormal findings (principal)
CPT/HCPCS: 81001; 81003; 87086

== ENCOUNTER 2025-09-20 08:18 | Outpatient (CLI) | payer BC, MEDICARE, SELFPAY ==
[2025-09-20 12:44] LABS: Vitamin B12* 303 pg/mL (243-894)
== END 2025-09-20 08:19 | disposition home or self-care (01) ==
LOC: NPINS 08:19
PROVIDERS: PCP Family Medicine; Visit Provider Family Medicine
DX: E53.8 Deficiency of other specified B group vitamins (principal)
CPT/HCPCS: 82607